=== PATIENT | female | born 1980 | race Asian ===

== ENCOUNTER 2020-07-23 13:28 | Outpatient (REF) | payer OTHER, SELFPAY | END 2020-07-23 13:29 | disposition home or self-care (01) | LOC: HO.HMGCLDS 13:28 | PROVIDERS: PCP Internal Medicine; Visit Provider Internal Medicine | DX: Z20.828 Contact with and (suspected) exposure to other viral communicable diseases (principal) | CPT/HCPCS: C9803; U0003 ==

== ENCOUNTER 2020-08-23 11:28 | Outpatient (REF) | payer OTHER, SELFPAY ==
[2020-08-23 14:09] LABS: Estimated Average Glucose 117 mg/dL; Hemoglobin A1c % 5.7 %
[2020-08-23 14:23] LABS: Alanine Aminotransferase 27 U/L (0-31); Albumin Level 4.5 g/dL (3.5-5.0); Alkaline Phosphatase 83 U/L (39-117); Anion Gap 14 (12-20); Aspartate Amino Transferase 21 U/L (5-31); Bilirubin Total 0.5 mg/dL (0.0-1.0); Blood Urea Nitrogen 9 mg/dL (9-16); Calcium 9.5 mg/dL (8.4-10.2); Carbon Dioxide 28 mmol/L (22-29); Chloride 99 mmol/L (96-108); Cholesterol 223 mg/dL; Estimated Glomerular Filt Rate > 60; Glucose Fasting 85 mg/dL (60-99); HDL Cholesterol 40 mg/dL; Sodium 137 mmol/L (135-145); Total Protein 7.9 g/dL (6.5-8.0); Triglycerides 472 mg/dL
== END 2020-08-23 11:29 | disposition home or self-care (01) ==
LOC: HO.HMGCLDS 11:28
PROVIDERS: PCP Internal Medicine; Visit Provider Internal Medicine
DX: I10 Essential (primary) hypertension (principal); E78.5 Hyperlipidemia, unspecified; R73.01 Impaired fasting glucose
CPT/HCPCS: 80053; 80061; 83036

== ENCOUNTER 2020-12-01 03:23 | Inpatient (IN) | payer OTHER, SELFPAY ==
[2020-12-01] VITALS (12 sets, daily range): BP systolic 123–149; BP diastolic 68–96; PULSE 78–111; RESP 12–18; TEMP 36.1–37.4; O2SAT 95–100; BMI 21.9
--- NOTE | ~2020-12-01 | CT_ITS ---
EXAMINATION: CT ABDOMEN AND PELVIS WITH CONTRAST CLINICAL INFORMATION: bilateral lower quadrant pain COMPARISON: None TECHNIQUE: Multidetector volumetric images were obtained from the superior aspect of the liver through the pubic symphysis following administration 85 mL of Omnipaque 350 intravenous contrast. Sagittal and coronal reformatted images were obtained on the technologist's workstation. Oral contrast: No This CT examination was performed using dose optimization techniques as appropriate, variously including the following: *Automated exposure control *Adjustment of mA and/or kV according to patient size (this includes techniques or standardized protocols for targeted exams where dose is matched to indication/reason for exam; i.e. extremities or head) *Use of iterative reconstruction technique DLP: 331 mGy-cm FINDINGS: LUNG BASES: The visualized lung bases are unremarkable. LIVER, GALLBLADDER, AND BILIARY TREE: The liver is normal in size, shape, and attenuation. No focal hepatic lesion or biliary ductal dilatation is present. The gallbladder is unremarkable with no evidence of radiopaque gallstones, gallbladder wall thickening, or obvious pericholecystic inflammatory changes. PANCREAS: Unremarkable. SPLEEN: Unremarkable. ADRENAL GLANDS: Unremarkable. KIDNEYS AND URETERS: Small subcentimeter foci of hypoattenuation in both kidneys are too small to characterize, but statistically favored to correspond to renal cysts. The kidneys are normal in size, shape, and attenuation. No hydronephrosis, hydroureter, or calculi seen. No perinephric stranding. BLADDER: Unremarkable. GASTROINTESTINAL TRACT: The appendix is dilated (1 cm) with hyperenhancement of the wall and surrounding fat stranding. No surrounding fluid collections. No evidence of perforation. No intraperitoneal free air. Trace amount of free fluid is present in the pelvis. There is mild reactive wall thickening at the base of the cecum. The stomach, small bowel, and colon are normal in caliber. ABDOMINAL WALL: No significant hernia is appreciated. LYMPH NODES: Normal. VASCULAR: Atherosclerotic calcifications are present in the abdominal aorta and iliac arteries. No aneurysmal dilatation. PELVIC VISCERA: Uterus is retroverted section scar is suspected at the anterior lower uterine segment. No adnexal lesions are identified. OSSEOUS STRUCTURES: Unremarkable. CT/CT abdomen pelvis w con IMPRESSION: Acute uncomplicated appendicitis.
--- NOTE | 2020-12-01 04:06 | ED_ITS ---
HPI - Abdominal Pain General Chief Complaint: Abdominal Pain Stated Complaint: Abd pain/ ?Food poisioning Time Seen by Provider: 12/01/20 03:59 Source: patient Mode of arrival: ambulatory Limitations: no limitations History of Present Illness HPI narrative: Patient comes emergency room complaining of abdominal cramping, loose stools and vomiting. Patient states last night she ate for dinner crab. No one at home got sick except her. Patient states that she feels abdominal cramping, worse in bilateral lower quadrants, states it almost feels like menstrual cramps which she is not on her period. Denies any sharp pain. Patient denies fever chills. MD elicited complaint: abdominal pain (Cramping) Related Data Home Medications Medication Instructions Recorded Confirmed flu vacc [id number] 6mos up(PF) ml IM 08/28/20 08/28/20 Previous Rx's Medication Instructions Recorded fenofibrate nanocrystallized 145 145 mg PO DAILY 90 Days #90 tab 08/28/20 mg tablet losartan 25 mg tablet 25 mg PO DAILY 90 Days #90 tab 08/28/20 Allergies Allergy/AdvReac Type Severity Reaction Status Date / Time No Known Allergies Allergy Verified 08/27/20 14:59 Review of Systems Review of Systems Constitutional : No Weight loss, No Fever, No Chills, No Night Sweats, No Fatigue, No Malaise ENT/Mouth : No Hearing loss, No Ear Pain, No Nasal Congestion, No Sinus Pain, No Hoarseness, No sore throat, No Rhinorrhea, No Swallowing Difficulty Eyes: No Eye Pain, No Swelling, No Redness, No Foreign Body, No Discharge, No Vision Changes Cardiovascular : No Chest Pain, No SOB, No Dyspnea on Exertion, No Orthopnea, No Edema, No Palpitations Respiratory : No Cough, No Sputum, No Wheezing, No Smoke Exposure, No Dyspnea Gastrointestinal : Complaining of nausea, vomiting, loose stools No Constipati on, complaining of abdominal cramping, No Hematochezia, No Melena Genitourinary : no irregular bleeding, No Dysuria, No Urinary Frequency, No Hematuria, No Urinary Incontinence, No Urgency, No Flank Pain, No Urinary Flow Changes, No Hesitancy Musculoskeletal : No joint pain, No Myalgias, No Joint Swelling Skin : No Skin Lesions, No rash Neuro : No Weakness, No Numbness, No Paresthesias, No Loss of Consciousness, No Dizziness, No Headache Psych : No Anxiety/Panic, No Depression, No SI/HI/AH/VH, No Social Issues, Heme/Lymph: No Bruising, No Bleeding,No Lymphadenopathy Endocrine : No Polyuria, No Polydipsia, No Temperature Intolerance Physical Exam Vital Signs: Vital Signs: Last Vital Signs Temp 99.4 F 12/01/20 03:51 Pulse 111 H 12/01/20 03:51 Resp 16 12/01/20 03:51 BP 149/96 H 12/01/20 03:51 Pulse Ox 99 12/01/20 03:51 Body Mass Index 21.9 Appearance: Alert. Oriented X3. No acute distress. Well-appearing Eyes: Pupils equal, round and reactive to light. ENT: Pharynx normal. Neck: Normal inspection. Neck supple. No lymph nodes noted. No crepitus CVS: Normal heart rate and rhythm. Pulses normal. Normal S1 and S2 Respiratory: No respiratory distress. Breath sounds normal. No Wheezing. No rales Abdomen: Soft and nontender. No rigidity. No distention. good BS x4 Skin: Skin warm and dry. Normal skin color. Normal skin turgor. Extremities: No lower extremity edema. No lower extremity edema. No Lacerat ions. No Rash Neuro: Oriented X 3. No motor deficit. No sensory deficit. Moving all extermities. No slurred speech. Course Course Course Narrative: I discussed the labs and CT findings with Dr. Jerry. Patient will be admitted to the surgery service. MDM - Abdominal Pain Lab Data Result diagrams: 12/01/20 04:40 12/01/20 04:40 Labs: Lab Results 12/01/20 12/01/20 12/01/20 Range/Units 04:40 04:40 04:40 WBC 13.4 H (4.8-10.8) X10*3/uL RBC 4.95 (4.20-5.50) X10*6/uL Hgb 13.8 (12.0-16.0) g/dl Hct 42.8 (37-47) % MCV 86.5 (80-98) fL MCH 27.9 (27.0-33.0) pg MCHC 32.2 (31.0-35.0) g/dl RDW 14.8 (11.0-16.0) % Plt Count 299 (160-400) X10*3/uL MPV 9.2 L (9.4-12.3) fL Immature Gran % (Auto) 0.4 (0.0-0.4) % Neut % (Auto) 83.3 H (45-73) % Lymph % (Auto) 10.9 L (20-40) % [place] % (Auto) 5.1 (2-11) % Eos % (Auto) 0.1 (0-4) % Baso % (Auto) 0.2 (0-2) % Lymph # (Auto) 1.5 (1.2-4.9) X10*3/uL [place] # (Auto) 0.7 (0.1-1.2) X10*3/uL Eos # (Auto) 0.0 (0.0-0.4) X10*3/uL Baso # (Auto) 0.0 (0.0-0.2) X10*3/uL Abs Immat Gran (auto) 0.05 H (0.00-0.03) X10*3/uL Absolute Neuts (auto) 11.2 H (2.0-8.3) X10*3/uL Absolute Nucleated RBC 0.000 (0.0-0.012) X10*3/uL Nucleated RBC % (auto) 0.0 (0.0-0.2) /100WBC Sodium 136 (135-145) mmol/L Potassium 4.1 (3.3-5.1) mmol/L Chloride 103 (96-108) mmol/L Carbon Dioxide 24 (22-29) mmol/L Anion Gap 13 (12-20) BUN 12 (9-16) mg/dL Creatinine 0.80 (0.5-1.4) mg/dL Estim Creat Clear Calc 73.2 Estimated GFR > 60 Random Glucose 139 H (60-115) mg/dL Calcium 11.0 H D (8.4-10.2) mg/dL Total Bilirubin 0.2 (0.0-1.0) mg/dL Direct Bilirubin < 0.2 (0.0-0.5) mg/dL AST 23 (5-31) U/L ALT 30 (0-31) U/L Alkaline Phosphatase 93 (39-117) U/L Total Protein 8.6 H (6.5-8.0) g/dL Albumin 5.1 H (3.5-5.0) g/dL Lipase 17 (8-78) U/L Urine Color Urine Appearance Urine pH (5.0-8.0) Ur Specific [place] (1.005-1.025) Urine Protein (NEG-TRACE) MG/DL Urine Glucose (UA) (NEG) MG/DL Urine Ketones (NEG) MG/DL Urine Blood (NEG) Urine Nitrite (NEG) Ur Leukocyte Esterase (NEG) Urine RBC (0) /HPF Urine WBC (0-4) /HPF Ur Squamous Epith Cells /LPF Urine Bacteria /LPF Urine Mucus /LPF Urine Test NEGATIVE (NEGATIVE) 12/01/20 Range/Units 04:40 WBC (4.8-10.8) X10*3/uL RBC (4.20-5.50) X10*6/uL Hgb (12.0-16.0) g/dl Hct (37-47) % MCV (80-98) fL MCH (27.0-33.0) pg MCHC (31.0-35.0) g/dl RDW (11.0-16.0) % Plt Count (160-400) X10*3/uL MPV (9.4-12.3) fL Immature Gran % (Auto) (0.0-0.4) % Neut % (Auto) (45-73) % Lymph % (Auto) (20-40) % [place] % (Auto) (2-11) % Eos % (Auto) (0-4) % Baso % (Auto) (0-2) % Lymph # (Auto) (1.2-4.9) X10*3/uL [place] # (Auto) (0.1-1.2) X10*3/uL Eos # (Auto) (0.0-0.4) X10*3/uL Baso # (Auto) (0.0-0.2) X10*3/uL Abs Immat Gran (auto) (0.00-0.03) X10*3/uL Absolute Neuts (auto) (2.0-8.3) X10*3/uL Absolute Nucleated RBC (0.0-0.012) X10*3/uL Nucleated RBC % (auto) (0.0-0.2) /100WBC Sodium (135-145) mmol/L Potassium (3.3-5.1) mmol/L Chloride (96-108) mmol/L Carbon Dioxide (22-29) mmol/L Anion Gap (12-20) BUN (9-16) mg/dL Creatinine (0.5-1.4) mg/dL Estim Creat Clear Calc Estimated GFR Random Glucose (60-115) mg/dL Calcium (8.4-10.2) mg/dL Total Bilirubin (0.0-1.0) mg/dL Direct Bilirubin (0.0-0.5) mg/dL AST (5-31) U/L ALT (0-31) U/L Alkaline Phosphatase (39-117) U/L Total Protein (6.5-8.0) g/dL Albumin (3.5-5.0) g/dL Lipase (8-78) U/L Urine Color YELLOW Urine Appearance CLEAR Urine pH 6.0 (5.0-8.0) Ur Specific [place] 1.025 (1.005-1.025) Urine Protein NEG (NEG-TRACE) MG/DL Urine Glucose (UA) NEG (NEG) MG/DL Urine Ketones NEG (NEG) MG/DL Urine Blood NEG (NEG) Urine Nitrite NEG (NEG) Ur Leukocyte Esterase TRACE H (NEG) Urine RBC 1-4 (0) /HPF Urine WBC 5-9 H (0-4) /HPF Ur Squamous Epith Cells 1+ /LPF Urine Bacteria 2+ /LPF Urine Mucus 1+ /LPF Urine Test (NEGATIVE) Discharge Plan Discharge Prescriptions: No Action Fluzone Quad 1209-1660 (PF) 60 mcg (15 mcg x 4)/0.5 mL syringe IM RF: 0 losartan 25 mg tablet 25 mg PO DAILY 90 Days Qty: 90 RF: 1 fenofibrate nanocrystallized 145 mg tablet 145 mg PO DAILY 90 Days Qty: 90 RF: 1 PMFSH Past Medical History Medical History Hypertension, essential Lipid disorder Surgical History No pertinent past surgical history Family History Family History Father No problems noted. Mother No problems noted. Brother No problems noted. Sister No problems noted. Daughter No problems noted. Social History Social History Alcohol intake: never Smoking Status: Never smoker Advance Directives: No Advance Directives Information Provided: No
[2020-12-01] MEDS: 0.9 % Sodium Chloride 1,000 ML 999 ML IVCONT (04:41)
[2020-12-01 04:45] LABS: Basophils Percent Auto 0.2 % (0-2); Eosinophils Percent Auto 0.1 % (0-4); Hematocrit 42.8 % (37-47); Hemoglobin 13.8 g/dl (12.0-16.0); Imm Gran Abs Auto 0.05 X10*3/uL (0.00-0.03); Imm Gran Pct Auto 0.4 % (0.0-0.4); Lymphocytes Absolute Auto 1.5 X10*3/uL (1.2-4.9); Lymphocytes Percent Auto 10.9 % (20-40); Mean Corpuscular HGB Conc 32.2 g/dl (31.0-35.0); Mean Corpuscular Hemoglobin 27.9 pg (27.0-33.0); Mean Corpuscular Volume 86.5 fL (80-98); Mean Platelet Volume 9.2 fL (9.4-12.3); Monocytes Absolute Auto 0.7 X10*3/uL (0.1-1.2); Monocytes Percent Auto 5.1 % (2-11); Neutrophils Absolute Auto 11.2 X10*3/uL (2.0-8.3); Neutrophils Percent Auto 83.3 % (45-73); Platelet Count 299 X10*3/uL (160-400); Red Blood Count 4.95 X10*6/uL (4.20-5.50); Red Cell Distribution Width 14.8 % (11.0-16.0); White Blood Count 13.4 X10*3/uL (4.8-10.8)
[2020-12-01 04:46] LABS: MANUAL DIFF FLAG NO
[2020-12-01 04:48] LABS: Glucose Urine UA NEG (NEG); Leukocyte Esterase Urine TRACE (NEG); Nitrite Urine NEG (NEG); Specific Gravity - Urine 1.025 (1.005-1.025); UACC Culture Trigger YES; Urine Blood NEG (NEG); Urine Ketones NEG (NEG); Urine Protein NEG (NEG-TRACE)
[2020-12-01 04:50] LABS: Appearance Urine CLEAR; Color Urine YELLOW
[2020-12-01 04:51] LABS: Urine Pregnancy NEGATIVE (NEGATIVE)
[2020-12-01 04:52] LABS: UPreg QC Valid YES
[2020-12-01 04:54] LABS: Bacteria Urine 2+ /LPF; Mucus Urine 1+ /LPF; Squamous Epithelial Cell Urine 1+ /LPF
[2020-12-01 05:13] LABS: Alanine Aminotransferase 30 U/L (0-31); Albumin Level 5.1 g/dL (3.5-5.0); Alkaline Phosphatase 93 U/L (39-117); Anion Gap 13 (12-20); Aspartate Amino Transferase 23 U/L (5-31); Bilirubin Direct < 0.2 mg/dL (0.0-0.5); Bilirubin Total 0.2 mg/dL (0.0-1.0); Blood Urea Nitrogen 12 mg/dL (9-16); Carbon Dioxide 24 mmol/L (22-29); Chloride 103 mmol/L (96-108); Creatinine Clr Calc Pharmacy 73.2; Estimated Glomerular Filt Rate > 60; Glucose Random 139 mg/dL (60-115); Lipase 17 U/L (8-78); Potassium 4.1 mmol/L (3.3-5.1); Sodium 136 mmol/L (135-145); Total Protein 8.6 g/dL (6.5-8.0)
[2020-12-01] MEDS: Magnesium Hydrox/Alum Hydrox 30 ML ORAL.SUSP PO (05:40)
[2020-12-01] MEDS: Lidocaine HCl Viscous 2 % 15 ML SOLUTION MUCOUS MEM (05:40)
[2020-12-01] MEDS: ondansetron HCL 4 MG/2 ML VIAL IVPUSH (05:40)
[2020-12-01] MEDS: Piperacillin Sodium/Tazobactam 3.375 GM in 0.9 % Sodium Chloride 50 ML IV (07:05)
--- NOTE | 2020-12-01 07:42 | PM.HPGS ---
History of Present Illness History of Present Illness Date of Service: 12/01/20 Chief complaint: Abd pain/ ?Food poisioning Narrative: Lexy Jean Baptiste is a 40 year old female is a 40-year-old female presenting with complaints of abdominal pain in the right lower quadrant and left lower quadrant. The pain began last evening with no inciting event. Pain became most severe during the night and she subsequently presented to the emergency department. The pain was proceeded by pain in the right flank for the previous day. She reports nausea and vomiting without fever or chills. She does report feeling warm and having loose but not watery stool. She usually thought she had a GI bug. Upon presentation to the emergency department she was found to have tenderness in the lower abdomen especially the right lower quadrant. WBC was found to be mildly elevated at 13,000. Subsequent CT of the abdomen and pelvis revealed a thickened and dilated appendix suggestive of acute appendicitis without perforation. She is admitted to the surgical service for further management. Review of Systems Review of Systems: Yes all other systems are reviewed and are negative Constitutional: Constitutional: Denies chills, Denies fever(s), Denies night sweats and Denies weakness Cardiovascular: Cardiovascular: Denies Abdominal Distension, Denies chest pain, Denies Epigastric Pain, Denies irregular heart rhythm, Denies palpitations and Denies dyspnea Respiratory: Respiratory: Denies cough, Denies pain on inspiration, Denies dyspnea, Denies stridor and Denies wheezing Gastrointestinal: Gastrointestinal: Reports abdominal pain, Denies bloating, Denies hematochezia, Reports nausea, Reports vomiting and Denies hematemesis Genitourinary: Genitourinary: Reports no additional female genitourinary complaints Musculoskeletal: Musculoskeletal: Reports no additional musculoskeletal complaints Integumentary/Breasts: Skin/Breast: Reports system reviewed and no additional complaints, except as docu Neurologic: Reports system reviewed and no additional complaints, except as documented and Denies weakness Endocrine: Endocrine: Denies palpitations Hematologic/Lymphatic: Hematologic/Lymphatic: Denies lymphadenopathy Allergic/Immunologic: Allergic/Immunologic: Denies wheezing PMFSH Past Medical History Medical History Hypertension, essential Lipid disorder Family History Family History Father No problems noted. Mother No problems noted. Brother No problems noted. Sister No problems noted. Daughter No problems noted. Surgical History Surgical History Previous section Social History Social History Alcohol intake: never Smoking Status: Never smoker Advance Directives: No Advance Directives Information Provided: No Meds Allergies Allergy/AdvReac Type Severity Reaction Status Date / Time No Known Allergies Allergy Verified 08/27/20 14:59 Active Medications: Current Medications Generic Name Dose Route Start Last Admin Trade Name Freq PRN Reason Stop Dose Admin Acetaminophen 650 mg 12/01/20 07:38 Acetaminophen 325 Mg Tablet PO Q6H PRN Pain, Mild (Pain Scale 1-3) Cefotetan Disodium 2 gm/ 50 mls @ 100 mls/hr 12/01/20 07:38 Sodium Chloride IV 12/01/20 08:07 PREOP ONE Morphine Sulfate 4 mg 12/01/20 07:40 Morphine Sulfate 4 Mg/Ml Cartridge IVPUSH Q4H PRN Pain, Severe (Pain Scale 7-10) Ondansetron HCl 4 mg 12/01/20 07:38 Ondansetron Hcl 4 Mg/2 Ml Vial IVPUSH Q8H PRN Nausea and Vomiting Sodium Chloride 3 ml 12/01/20 08:00 0.9 % Sodium Chloride Flush 3 Ml Syringe IVFLUSH QSHIFT RUBIN Zolpidem Tartrate 5 mg 12/01/20 07:38 Zolpidem Tartrate 5 Mg Tablet PO BEDTIME PRN Insomnia Home Medications Medication Instructions Recorded Confirmed Last Taken Type flu vacc [id number] 6mos up(PF) ml IM 08/28/20 08/28/20 Unknown History Physical Exam Vital Signs: Vital Signs: Last Vital Signs Temp 99.4 F 12/01/20 03:51 Pulse 111 H 12/01/20 03:51 Resp 16 12/01/20 03:51 BP 149/96 H 12/01/20 03:51 Pulse Ox 99 12/01/20 03:51 Body Mass Index 21.9 Const: General: cooperative, healthy appearing, comfortable, no acute distress, well developed, alert and awake HENMT: Head: Yes normocephalic and Yes atraumatic Neck: Neck: Yes normal visual inspection, Yes full ROM and Yes no JVD Resp: Effort & Inspection: normal respiratory effort, no stridor and not tachypneic Cardio: Jugular venous distension: no JVD Rate: regular rate Rhythm: regular rhythm GI: Inspection: Yes normal to inspection and No distended Palpation (GI): Soft to palpation, Tenderness to palpation present (GI) in the RLQ and at McBurney's point and No hepatosplenomegaly present Percussion: Yes normal to percussion Auscultation: normal bowel sounds Skin: General skin exam: no rashes or lesions noted Extrem: General: Yes normal to inspection, Yes full ROM and Yes no clubbing, cyanosis or edema Results Results Labs: Short CBC 12/01/20 Range/Units 04:40 WBC 13.4 H (4.8-10.8) X10*3/uL Hgb 13.8 (12.0-16.0) g/dl Hct 42.8 (37-47) % Plt Count 299 (160-400) X10*3/uL BMP 12/01/20 04:40 Sodium 136 Potassium 4.1 Chloride 103 Carbon Dioxide 24 BUN 12 Creatinine 0.80 Calcium 11.0 H D Liver Function 12/01/20 Range/Units 04:40 Total Bilirubin 0.2 (0.0-1.0) mg/dL Direct Bilirubin < 0.2 (0.0-0.5) mg/dL AST 23 (5-31) U/L ALT 30 (0-31) U/L Alkaline Phosphatase 93 (39-117) U/L Albumin 5.1 H (3.5-5.0) g/dL Urine 12/01/20 12/01/20 Range/Units 04:40 04:40 Urine Color YELLOW Urine Appearance CLEAR Urine pH 6.0 (5.0-8.0) Ur Specific [place] 1.025 (1.005-1.025) Urine Protein NEG (NEG-TRACE) MG/DL Urine Glucose (UA) NEG (NEG) MG/DL Urine Test NEGATIVE (NEGATIVE) Assessment and Plan (1) Acute appendicitis: Status: Acute 40-year-old female presenting with complaints of abdominal pain in the lower abdomen found to be tender in the right lower quadrant. Laboratories revealed elevated WBC and CT confirms a thickened dilated appendix consistent with acute appendicitis. We discussed treatment options including IV antibiotics verses laparoscopic or possible open appendectomy. The relative risks and benefits were discussed in detail in the patient's questions answered to her apparent satisfaction. The patient has decided to proceed with laparoscopic or possible open appendectomy. After discussion of the procedure, risks, and alternatives, she consents to the surgery. She will be added onto the operative schedule for this morning.
[2020-12-01] MEDS: Lactated Ringers 1,000 ML 100 ML IVCONT (08:02)
--- NOTE | 2020-12-01 08:04 | MHC.SHP ---
Pre-Procedural Eval Section A The patient is an INPATIENT: Yes Changes since office visit: Yes Patient answered all questions; No Cold of Flu in the past 2 weeks, No New Medical Problems and No Changes in Medication The History & Physical has been completed within 30 days and I have reviewed it.: Yes Section B Chief Complaint: Abd pain/ ?Food poisioning Allergies: Allergies Allergy/AdvReac Type Severity Reaction Status Date / Time No Known Allergies Allergy Verified 08/27/20 14:59 Plan Diagnosis/Plan: Unchanged I have reviewed the history and physical and performed a pertinent physical examination on my patient. No changes have occurred unless specified.
--- NOTE | 2020-12-01 09:02 | HO.ANESPROP2 ---
[facility] Active Problems Active Problems: All Active Problems (Updated 12/01/20 @ 07:47 by Lino Jerry MD) Acute appendicitis (Acute) Lipid disorder (Acute) Hypertension, essential (Acute) Past Medical History Medical History Hypertension, essential Lipid disorder Family History Family History Father No problems noted. Mother No problems noted. Brother No problems noted. Sister No problems noted. Daughter No problems noted. Surgical History Surgical History Previous section Social History Social History Alcohol intake: never Smoking Status: Never smoker Advance Directives: No Advance Directives Information Provided: No Meds Allergies Allergy/AdvReac Type Severity Reaction Status Date / Time No Known Allergies Allergy Verified 08/27/20 14:59 Active Medications: Current Medications Generic Name Dose Route Start Last Admin Trade Name Freq PRN Reason Stop Dose Admin Acetaminophen 650 mg 12/01/20 07:38 Acetaminophen 325 Mg Tablet PO Q6H PRN Pain, Mild (Pain Scale 1-3) Lactated Ringer's 1,000 mls @ 100 mls/hr 12/01/20 08:00 12/01/20 08:02 Lr IVCONT 100 mls/hr .Q10H RUBIN Administration Morphine Sulfate 4 mg 12/01/20 07:40 Morphine Sulfate 4 Mg/Ml Cartridge IVPUSH Q4H PRN Pain, Severe (Pain Scale 7-10) Ondansetron HCl 4 mg 12/01/20 07:38 Ondansetron Hcl 4 Mg/2 Ml Vial IVPUSH Q8H PRN Nausea and Vomiting Sodium Chloride 3 ml 12/01/20 08:00 12/01/20 08:03 0.9 % Sodium Chloride Flush 3 Ml Syringe IVFLUSH Not Given QSHIFT RUBIN Zolpidem Tartrate 5 mg 12/01/20 07:38 Zolpidem Tartrate 5 Mg Tablet PO BEDTIME PRN Insomnia Exam Exam Date and Time: December 01, 2020 0902 Height,Weight and Vital Signs: Height 5 ft 2 in Weight 54.431 kg Last Vital Signs Temp 99.4 F 12/01/20 03:51 Pulse 111 H 12/01/20 03:51 Resp 16 12/01/20 03:51 BP 149/96 H 12/01/20 03:51 Pulse Ox 99 12/01/20 03:51 Pertinent Lab Results Pertinent Lab Results: Laboratory Tests 12/01/20 12/01/20 12/01/20 04:40 04:40 04:40 WBC 13.4 H RBC 4.95 Hgb 13.8 Hct 42.8 MCV 86.5 MCH 27.9 MCHC 32.2 RDW 14.8 Plt Count 299 MPV 9.2 L Immature Gran % (Auto) 0.4 Neut % (Auto) 83.3 H Lymph % (Auto) 10.9 L [place] % (Auto) 5.1 Eos % (Auto) 0.1 Baso % (Auto) 0.2 Lymph # (Auto) 1.5 [place] # (Auto) 0.7 Eos # (Auto) 0.0 Baso # (Auto) 0.0 Abs Immat Gran (auto) 0.05 H Absolute Neuts (auto) 11.2 H Absolute Nucleated RBC 0.000 Nucleated RBC % (auto) 0.0 Sodium 136 Potassium 4.1 Chloride 103 Carbon Dioxide 24 Anion Gap 13 BUN 12 Creatinine 0.80 Estim Creat Clear Calc 73.2 Estimated GFR > 60 Random Glucose 139 H Calcium 11.0 H D Total Bilirubin 0.2 Direct Bilirubin < 0.2 AST 23 ALT 30 Alkaline Phosphatase 93 Total Protein 8.6 H Albumin 5.1 H Lipase 17 Urine Color Urine Appearance Urine pH Ur Specific [place] Urine Protein Urine Glucose (UA) Urine Ketones Urine Blood Urine Nitrite Ur Leukocyte Esterase Urine RBC Urine WBC Ur Squamous Epith Cells Urine Bacteria Urine Mucus Urine Test NEGATIVE 12/01/20 04:40 WBC RBC Hgb Hct MCV MCH MCHC RDW Plt Count MPV Immature Gran % (Auto) Neut % (Auto) Lymph % (Auto) [place] % (Auto) Eos % (Auto) Baso % (Auto) Lymph # (Auto) [place] # (Auto) Eos # (Auto) Baso # (Auto) Abs Immat Gran (auto) Absolute Neuts (auto) Absolute Nucleated RBC Nucleated RBC % (auto) Sodium Potassium Chloride Carbon Dioxide Anion Gap BUN Creatinine Estim Creat Clear Calc Estimated GFR Random Glucose Calcium Total Bilirubin Direct Bilirubin AST ALT Alkaline Phosphatase Total Protein Albumin Lipase Urine Color YELLOW Urine Appearance CLEAR Urine pH 6.0 Ur Specific [place] 1.025 Urine Protein NEG Urine Glucose (UA) NEG Urine Ketones NEG Urine Blood NEG Urine Nitrite NEG Ur Leukocyte Esterase TRACE H Urine RBC 1-4 Urine WBC 5-9 H Ur Squamous Epith Cells 1+ Urine Bacteria 2+ Urine Mucus 1+ Urine Test Airway Mallampati Class: II TM Dist: >3cm Neck ROM: Full Heart: RRR Lungs: CTA
--- NOTE | 2020-12-01 09:22 | P.OP_ITS ---
Operative Note Operative Note Date of Service: 12/01/20 Narrative: Preoperative diagnosis: Acute appendicitis Postoperative diagnosis: Same Procedure: Laparoscopic appendectomy Surgeon: Lino Jerry MD Diving Coach: None Anesthesia: General endotracheal Indications for procedure: 40-year-old female presenting with complaints of right lower quadrant abdominal pain found to have tenderness over McBurney's point. She was found to have an elevated WBC and thickened appendix on CT scan. Operative findings: Acute appendicitis without perforation. Specimen: Appendix Estimated blood loss: 5 mL Complications: None Procedure details: Patient was brought to the OR and placed in a supine position. After administering general anesthesia the patient's abdomen was prepped with ChloraPrep and draped in a sterile fashion. A surgical time-out was called and consent confirmed. Patient received preoperative antibiotics and Venodyne boots were in place. Local anesthesia consisting of 0.25% Sensorcaine with epinephrine was infiltrated in periumbilical region. A 5 mm incision was made below the umbilicus and carried down through subcutaneous tissue. A Veress needle was then inserted while elevating abdominal cavity with towel clips. After a positive drop test the abdomen was insufflated to a pressure of 15 mm of mercury. The Veress needle was removed and a 5 mm trocar inserted. The camera was then inserted in the abdomen explored. A 2nd 5 mm trocars placed in the lower midline. A 12 mm trocar was then placed in the left lower quadrant. The patient was then placed in a Trendelenburg position and rotated to the left. The appendix was identified in the right lower quadrant and brought up using blunt dissecting clamps. The mesentery of the appendix was then divided using the LigaSure. The appendiceal artery was cauterized and divided using the L igaSure. Dissection was continued down to the base of the cecum. An Endo-SHRUTI stapler with a purple reload was then used to divide the appendix at the base with the cecum. The appendix was then placed in Endo-Catch bag and brought out through the left lower quadrant incision. The abdomen was then irrigated with saline solution and suctioned dry. Wounds were checked for hemostasis. CO2 was then evacuated from the abdominal cavity and all trocars removed. Fascia was closed in the left lower quadrant incision using a [id number] 0 Polysorb suture. Skin was closed at all incisions using a subcuticular 4-0 Polysorb suture. Steri-Strips 2 x 2 gauze and Tegaderm were then applied. The patient tolerated the procedure well. Sponge, instrument, needle counts reported as correct. The patient was transferred to PACU in stable condition.
--- NOTE | 2020-12-01 15:59 | MHC.CM.PN ---
EMR REVIEWED, PT ADMITTED W/ACUTE APPENDICITIS W/LAP APPENDECTOMY, CM MET WITH PT WHO IS ALERT AND ORIENTED, PT REPORTS SHE LIVES W[facility] 2 KIDS [facility] [place], PT IS INDEPENDENT WITH ALL CARE, NO SERVICES. PT VERIFIES PCP AND PHARMACY. PCP: ART JACKMAN HCP: PT PROVIDED EDUCATION AND DECLINES AT THIS TIME. DISCHARGE PLAN: HOME SELF-CARE, TO TRANSPORT.
--- NOTE | 2020-12-01 16:02 | PM.DS ---
DS: Providers Provider Date of Service: 12/01/20 Date of admission: 12/01/20 07:39 Date of discharge: 12/01/20 Primary care physician: Ayo Negrete MD Admitting clinician: Lino Jerry Discharging clinician: Lino Jerry DS: Diagnosis Discharge Diagnosis (1) Acute appendicitis: Status: Acute DS: Medications Discharge Medications Home Medications: Previous Rx's Medication Instructions Recorded fenofibrate nanocrystallized 145 145 mg PO DAILY 90 Days #90 tab 08/28/20 mg tablet losartan 25 mg tablet 25 mg PO DAILY 90 Days #90 tab 08/28/20 oxycodone 5 mg PO Q6H PRN #15 tab 12/01/20 DS: Summary Hospital Course Hospital Course: Lexy Jean Baptiste is a 40 year old female is a 40-year-old female presenting with complaints of abdominal pain in the right lower quadrant and left lower quadrant. The pain began last evening with no inciting event. Pain became most severe during the night and she subsequently presented to the emergency department. The pain was proceeded by pain in the right flank for the previous day. She reports nausea and vomiting without fever or chills. She does report feeling warm and having loose but not watery stool. She usually thought she had a GI bug. Upon presentation to the emergency department she was found to have tenderness in the lower abdomen especially the right lower quadrant. WBC was found to be mildly elevated at 13,000. Subsequent CT of the abdomen and pelvis revealed a thickened and dilated appendix suggestive of acute appendicitis without perforation. She is admitted to the surgical service for further management. She was taken to the OR on the day of admission and underwent a laparoscopic appendectomy. Operative findings confirmed an acute appendicitis without rupture or abscess. She tolerated the procedure well. She was started on a regular diet and tolerated this well without nausea or vomiting. She was able to ambulate independently and void. She requested to be discharged on POD #0. She is discharged to home. Instructions were to avoid lifting > 10 pounds for the next two weeks. She should follow up in the office in one week for a wound check. She may shower and should remove the dressing in three days. She should call for fever, chills, nausea, vomiting, increased abdominal pain or other concerns following the surgery. Time Spent with Patient Time attestation: Total time spent providing and/or coordinating discharge services: Discharge coordination time: Less than 30 minutes Physical Exam Vital Signs: Vital Signs: Last Vital Signs Temp 97.2 F 12/01/20 14:54 Pulse 92 12/01/20 14:54 Resp 18 12/01/20 17:46 BP 123/68 12/01/20 14:54 Pulse Ox 99 12/01/20 14:54 Body Mass Index 21.9 Const: General: cooperative, healthy appearing, comfortable, no acute distress and well developed HENMT: Head: Yes normocephalic and Yes atraumatic Resp: Effort & Inspection: normal respiratory effort, no cough, no stridor and not tachypneic Cardio: Jugular venous distension: no JVD Rate: regular rate Rhythm: regular rhythm GI: Inspection: Yes normal to inspection Palpation (GI): Soft to palpation, Tenderness to palpation present (GI) and no guarding Extrem: General: Yes normal to inspection and Yes full ROM DS: Data Data Completed and Pending Pending studies at discharge: Pending at discharge 12/01/20 09:06 Surgical [PTH] Routine Discharge Plan Discharge Patient Disposition: Home, Self-Care Referrals: Ayo Negrete MD [Primary Care Provider] - Lino Jerry MD [Physician] - 1 Week Discharge Medications: New oxycodone 5 mg tablet 5 mg PO Q6H PRN (Reason: pain) Qty: 15 RF: 0 Continued losartan 25 mg tablet 25 mg PO DAILY 90 Days Qty: 90 RF: 1 fenofibrate nanocrystallized 145 mg tablet 145 mg PO DAILY 90 Days Qty: 90 RF: 1 Discharge Orders: Discharge Order (Routine); Ordered 12/01/20 Ordered By: Lino Jerry Diet: advance to usual diet Activity on Discharge: No heavy lifting Stand Alone Forms: Patient Portal Discharge page, Work/School Release Care Plan Goals: Return to normal activity and diet Health Concerns: Acute appendicitis Plan of Treatment: Laparoscopic appendectomy performed 12/01/2020 Patient Instructions: Laparoscopic Appendectomy (DC) Discharge Date/Time: 12/01/20 18:00
[2020-12-01] MEDS: oxyCODONE HCl Immed Release 5 MG TABLET PO (16:16)
--- NOTE | 2020-12-01 16:42 | PC.NURSE ---
Addendum entered by Naresh Hurley RN 12/01/20 16:43: Educated patient about these additional instructions. Original Note: Discharging patient - Clarified d/c instructions w/ Dr Jerry - patient should leave the tagaderm on for three days then remove. She may shower tomorrow. Sutures are dissolvable.
--- NOTE | 2020-12-02 11:50 | HO.POSTANES ---
Post Anesthesia Evaluation Post Anesthesia Evaluation Vital Signs: Patient seen 7am, VSS Anesthesia: General Endotracheal-GETA Mental Status: Awake Pain Control: Satisfactory Nausea/Vomiting: None Hydration: Adequate Anesthesia-Related Issues: No Anes. Related Issues
== END 2020-12-01 18:00 | disposition home or self-care (01) | DRG 343 ==
LOC: HO.ED 08:03 → HO.EDOVER 08:08 → HO.S3 09:33
PROVIDERS: Admitting Provider Surgery; Emergency Provider Emergency Medicine; PCP Internal Medicine; Visit Provider Surgery
PROC: 0DTJ4ZZ Resection of Appendix, Percutaneous Endoscopic Approach (ICD-10-PCS; CPT 44970; principal; 2020-12-01 07:00)
DX: K35.80 Unspecified acute appendicitis (principal); I10 Essential (primary) hypertension
CPT/HCPCS: 44970; 36415; 74177; 80048; 80076; 81001; 81003; 81025; 83690; 85025; 87086; 87147; 88304; 96361; 96365; 96375; 99283; 99285; J1100; J2250; J2405; J2543; J3010; Q9967

== ENCOUNTER → 2020-12-13 09:06 | Outpatient (BNVA) | payer OTHER, SELFPAY | PROVIDERS: PCP Internal Medicine; Visit Provider Surgery ==

== ENCOUNTER 2021-02-06 07:44 | Outpatient (REF) | payer OTHER, SELFPAY ==
[2021-02-06 11:35] LABS: Anion Gap 13 (12-20); Blood Urea Nitrogen 18 mg/dL (9-16); Calcium 9.1 mg/dL (8.4-10.2); Carbon Dioxide 21 mmol/L (22-29); Chloride 108 mmol/L (96-108); Cholesterol 211 mg/dL; Estimated Glomerular Filt Rate > 60; Glucose Fasting 89 mg/dL (60-99); HDL Cholesterol 54 mg/dL; LDL Cholesterol Calculated 139 mg/dl; Potassium 4.5 mmol/L (3.3-5.1); Sodium 137 mmol/L (135-145); Triglycerides 92 mg/dL
== END 2021-02-06 07:45 | disposition home or self-care (01) ==
LOC: HO.HMGCLDS 07:44
PROVIDERS: PCP Internal Medicine; Visit Provider Internal Medicine
DX: I10 Essential (primary) hypertension (principal); E78.9 Disorder of lipoprotein metabolism, unspecified
CPT/HCPCS: 36415; 80048; 80061

== ENCOUNTER 2021-08-05 08:43 | Outpatient (REF) | payer OTHER, SELFPAY ==
[2021-08-05 11:28] LABS: MANUAL DIFF FLAG NO
[2021-08-05 11:37] LABS: Basophils Percent Auto 0.6 % (0-2); Eosinophils Percent Auto 0.6 % (0-4); Hemoglobin 13.2 g/dl (12.0-16.0); Imm Gran Abs Auto 0.01 X10*3/uL (0.00-0.03); Imm Gran Pct Auto 0.2 % (0.0-0.4); Lymphocytes Absolute Auto 1.6 X10*3/uL (1.2-4.9); Lymphocytes Percent Auto 34.4 % (20-40); Mean Corpuscular HGB Conc 31.4 g/dl (31.0-35.0); Mean Corpuscular Hemoglobin 28.3 pg (27.0-33.0); Mean Corpuscular Volume 90.1 fL (80.0-98.0); Mean Platelet Volume 9.5 fL (9.4-12.3); Monocytes Absolute Auto 0.4 X10*3/uL (0.1-1.2); Monocytes Percent Auto 8.4 % (2-11); Neutrophils Absolute Auto 2.6 x10*3/uL (2.0-8.3); Neutrophils Percent Auto 55.8 % (45-73); Platelet Count 337 X10*3/uL (160-400); Red Blood Count 4.66 X10*6/uL (4.20-5.50); Red Cell Distribution Width 13.5 % (11.0-16.0); White Blood Count 4.7 X10*3/uL (4.8-10.8)
[2021-08-05 12:03] LABS: Alanine Aminotransferase 19 U/L (0-31); Albumin Level 4.5 g/dL (3.5-5.0); Alkaline Phosphatase 66 U/L (39-117); Anion Gap 14 (12-20); Aspartate Amino Transferase 19 U/L (5-31); Bilirubin Total 0.3 mg/dL (0.0-1.0); Blood Urea Nitrogen 19 mg/dL (9-16); Calcium 9.5 mg/dL (8.4-10.2); Carbon Dioxide 24 mmol/L (22-29); Chloride 107 mmol/L (96-108); Cholesterol 244 mg/dL; Estimated Glomerular Filt Rate > 60; Glucose Fasting 104 mg/dL (60-99); HDL Cholesterol 48 mg/dL; LDL Cholesterol Calculated 176 mg/dl; Potassium 4.8 mmol/L (3.3-5.1); Sodium 140 mmol/L (135-145); Total Protein 7.6 g/dL (6.5-8.0); Triglycerides 101 mg/dL
== END 2021-08-05 08:44 | disposition home or self-care (01) ==
LOC: HO.HMGCLDS 08:43
PROVIDERS: PCP Internal Medicine; Visit Provider Internal Medicine
DX: Z00.01 Encounter for general adult medical examination with abnormal findings (principal); E78.9 Disorder of lipoprotein metabolism, unspecified; I10 Essential (primary) hypertension
CPT/HCPCS: 36415; 80053; 80061; 85025

== ENCOUNTER 2021-12-06 08:27 | Outpatient (REF) | payer OTHER, SELFPAY ==
[2021-12-06 11:43] LABS: Alanine Aminotransferase 20 U/L (0-31); Albumin Level 4.1 g/dL (3.5-5.0); Alkaline Phosphatase 67 U/L (39-117); Anion Gap 13 (12-20); Aspartate Amino Transferase 18 U/L (5-31); Bilirubin Total 0.3 mg/dL (0.0-1.0); Blood Urea Nitrogen 16 mg/dL (9-16); Calcium 9.2 mg/dL (8.4-10.2); Carbon Dioxide 23 mmol/L (22-29); Chloride 108 mmol/L (96-108); Cholesterol 164 mg/dL; Estimated Average Glucose 117 mg/dL; Estimated Glomerular Filt Rate > 60; Glucose Fasting 91 mg/dL (60-99); HDL Cholesterol 39 mg/dL; Hemoglobin A1c % 5.7 %; LDL Cholesterol Calculated 107 mg/dl; Potassium 4.1 mmol/L (3.3-5.1); Sodium 140 mmol/L (135-145); Triglycerides 90 mg/dL
== END 2021-12-06 08:28 | disposition home or self-care (01) ==
LOC: HO.HMGCLDS 08:27
PROVIDERS: PCP Internal Medicine; Visit Provider Internal Medicine
DX: I10 Essential (primary) hypertension (principal); E78.9 Disorder of lipoprotein metabolism, unspecified; R73.03 Prediabetes
CPT/HCPCS: 36415; 80053; 80061; 82550; 83036

== ENCOUNTER 2022-05-28 07:14 | Outpatient (REF) | payer OTHER, SELFPAY ==
[2022-05-28 11:50] LABS: Alanine Aminotransferase 21 U/L (0-31); Albumin Level 4.4 g/dL (3.5-5.0); Alkaline Phosphatase 79 U/L (39-117); Anion Gap 12 (12-20); Aspartate Amino Transferase 19 U/L (5-31); Bilirubin Total 0.6 mg/dL (0.0-1.0); Blood Urea Nitrogen 13 mg/dL (9-16); Calcium 10.4 mg/dL (8.4-10.2); Carbon Dioxide 26 mmol/L (22-29); Chloride 103 mmol/L (96-108); Cholesterol 238 mg/dL; Estimated Glomerular Filt Rate > 60; Glucose Fasting 93 mg/dL (60-99); HDL Cholesterol 46 mg/dL; LDL Cholesterol Calculated 169 mg/dl; Potassium 4.4 mmol/L (3.3-5.1); Sodium 137 mmol/L (135-145); Total Protein 7.4 g/dL (6.5-8.0); Triglycerides 119 mg/dL
== END 2022-05-28 07:15 | disposition home or self-care (01) ==
LOC: HO.HMGCLDS 07:14
PROVIDERS: PCP Internal Medicine; Visit Provider Internal Medicine
DX: Z00.01 Encounter for general adult medical examination with abnormal findings (principal); E78.9 Disorder of lipoprotein metabolism, unspecified; R73.03 Prediabetes; I10 Essential (primary) hypertension
CPT/HCPCS: 36415; 80053; 80061

== ENCOUNTER 2022-08-05 16:34 | Outpatient (REF) | payer OTHER, SELFPAY ==
[2022-08-05 17:25] LABS: Influenza A PCR NEGATIVE (Negative); Influenza B PCR NEGATIVE (Negative); Resp Syncy Virus RNA Qual PCR NEGATIVE (Negative); SARS COV2 PCR INHOUSE NEGATIVE (Negative)
== END 2022-08-05 16:35 | disposition home or self-care (01) ==
LOC: HO.LNP 16:34
PROVIDERS: Visit Provider Internal Medicine
DX: R43.9 Unspecified disturbances of smell and taste (principal); Z20.822 Contact with and (suspected) exposure to COVID-19
CPT/HCPCS: 0241U

== ENCOUNTER 2022-10-31 08:43 | Outpatient (REF) | payer OTHER, SELFPAY ==
[2022-10-31 11:55] LABS: Estimated Average Glucose 105 mg/dL; Hemoglobin A1c % 5.3 %
[2022-10-31 12:05] LABS: Alanine Aminotransferase 18 U/L (0-31); Albumin Level 4.3 g/dL (3.5-5.0); Alkaline Phosphatase 78 U/L (39-117); Anion Gap 13 (12-20); Aspartate Amino Transferase 19 U/L (5-31); Bilirubin Total 0.8 mg/dL (0.0-1.0); Blood Urea Nitrogen 15 mg/dL (9-16); Calcium 9.1 mg/dL (8.4-10.2); Carbon Dioxide 23 mmol/L (22-29); Chloride 106 mmol/L (96-108); Cholesterol 223 mg/dL; Estimated Glomerular Filt Rate > 60; Glucose Fasting 92 mg/dL (60-99); HDL Cholesterol 50 mg/dL; LDL Cholesterol Calculated 147 mg/dl; Potassium 4.3 mmol/L (3.3-5.1); Sodium 138 mmol/L (135-145); Total Protein 7.3 g/dL (6.5-8.0); Triglycerides 133 mg/dL
== END 2022-10-31 08:44 | disposition home or self-care (01) ==
LOC: HO.HMGCLDS 08:43
PROVIDERS: PCP Internal Medicine; Visit Provider Internal Medicine
DX: E78.9 Disorder of lipoprotein metabolism, unspecified (principal); R73.03 Prediabetes; I10 Essential (primary) hypertension
CPT/HCPCS: 36415; 80053; 80061; 83036

== ENCOUNTER 2023-03-28 21:44 | Emergency (ER) | payer OTHER, SELFPAY ==
[2023-03-28 21:54] VITALS: BP 151/99; PULSE 92; RESP 18; TEMP 36; O2SAT 100; BMI 21.9
--- NOTE | 2023-03-28 23:07 | ED_ITS ---
HPI - General Adult General Chief complaint: Ear Problems Stated complaint: right ear pain Time Seen by Provider: 03/28/23 22:31 Source: patient, RN notes reviewed and old records reviewed Mode of arrival: ambulatory Limitations: no limitations History of Present Illness HPI narrative: 42-year-old female presents for evaluation of right ear pain Patient reports that she was camping in [place] for the last week. She reports a scratching sensation in her ear since right before she left for vacation over week ago She also reports the pain just in front of her right ear when chewing Denies any drainage from the ear, fevers, chills Related Data Previous Rx's Medication Instructions Recorded losartan 25 mg tablet 25 mg PO DAILY 90 days #90 tabs 11/06/22 pravastatin 40 mg tablet 40 mg PO BEDTIME 90 days #90 tabs 02/22/23 phenylephrine HCl 10 mg tablet 10 mg PO Q4-6H #14 tabs 03/28/23 (Sinus Decongestant (PE)) Allergies Allergy/AdvReac Type Severity Reaction Status Date / Time No Known Allergies Allergy Verified 03/28/23 21:54 Review of Systems ENT: Reports otalgia PMFSH Past Medical History Medical History History of uterine fibroid Hypertension, essential Lipid disorder Surgical History Previous section S/P laparoscopic appendectomy Family History Family History Father No problems noted. Mother No problems noted. Brother No problems noted. Sister No problems noted. Daughter No problems noted. Social History Social History Household Members: Family Housing: House Do you presently have visiting nurse or other home services: No Alcohol intake: never Patient Tobacco Use Status: Never used Tobacco e-Cigarette/Vaping Use: Never Used Second Hand Smoke Exposure: No Advance Directives: No Advance Directives Information Provided: No service: No Current occupational status: employed Cognitive needs: No Hearing needs: No Vision needs: No Physical Exam ED Vital Signs: Vital Signs - 24 hr 03/28/23 21:54 Temperature 96.8 F Pulse Rate 92 Respiratory Rate 18 Blood Pressure 151/99 H Pulse Oximetry 100 Oxygen Delivery Method Room Air BMI result Body Mass Index 21.9 Const General: healthy appearing, comfortable, no acute distress, alert and awake Nutritional Appearance: well nourished Orientation/consciousness: patient oriented x3 HENMT Head: Yes normocephalic and Yes atraumatic Ears: external ears normal, TM's abnormal bilaterally (Middle ear effusions bilaterally without perforation, erythema) and Abnormal EAC present (Small strand of air within the right external ear canal and does not appear) Eyes Eyelids: Yes eyelids normal Conjunctivae: conjunctivae normal Sclerae: sclerae normal Corneas: corneas normal Pupils: Equal, round and reactive pupils present EOM: EOMs intact bilaterally Neck Neck: Yes full ROM Resp Effort & Inspection: normal respiratory effort, able to speak in complete sentences and not labored Skin General skin exam: no rashes or lesions noted and elasticity normal Neuro General: patient oriented x3 Cranial nerves: Yes Equal, round and reactive pupils present and Yes Bilaterally intact EOM present Cognition (Neuro): normal cognition Extrem Other: Moving all extremities well without any obvious deformities Medical Decision Making Medical Decision Making MDM Narrative: Patient has no evidence of acute otitis media or otitis externa. There is no evidence of cerumen impaction. The patient does have a tiny stranded here which is likely the poking/stabbing sensation she has been feeling. I discussed her options and she elected to have the ear irrigated. The ear was irrigated with 120 cc of warm water. Patient reports resolution of her symptoms. On re- evaluation I do not see any foreign body within the ear canal. Will treat her with Sudafed for her middle ear effusions bilaterally Differential Diagnosis Otitis media Otitis externa A foreign body Cerumen impaction Discharge Plan Discharge Clinical Impression: Acute pain of right ear Patient Disposition: Home, Self-Care Instructions: Earache (ED) Additional Instructions: There was a tiny strain of her with neuro right ear, there was no evidence of infection You do have fluid behind your ear drum This can be treated with Sudafed PE Do not stick anything in your years Follow-up with your primary doctor Prescriptions: New phenylephrine HCl [Sinus Decongestant (PE)] 10 mg tablet 10 mg PO Q4-6H Qty: 14 0RF No Action losartan 25 mg tablet 25 mg PO DAILY 90 Days Qty: 90 1RF pravastatin 40 mg tablet 40 mg PO BEDTIME 90 Days Qty: 90 0RF
== END 2023-03-28 23:27 | disposition home or self-care (01) ==
PROVIDERS: Emergency Provider Emergency Medicine; PCP Internal Medicine
DX: H92.01 Otalgia, right ear (principal)
CPT/HCPCS: 99283

== ENCOUNTER 2023-04-13 12:04 | Outpatient (AMB) | payer OTHER, SELFPAY ==
--- NOTE | 2023-04-13 12:34 | AM.OFFWIN_ITS ---
Intake Vital Signs 04/13/23 12:40 Height 5 ft 2 in BP 124/72 Blood Pressure Location Rt brachial Position Sitting Pulse 94 Pulse Source Pulse Oximeter Temp 97.4 F Temp Source Temporal Artery Scan Pulse Oximetry (%) 99 Oxygen Delivery Method Room Air Intake Visit Reasons: EP, right ear pain ([phone]) Intake Note: Pt is here c/o right ear pain since the first week of March. Patient Tobacco Use Status: Never used Tobacco Allergies No Known Allergies Allergy (Verified 04/14/23 09:35) Medication List - Last Reconciled 04/14/23 by Dante Roach MD losartan 25 mg PO DAILY 90 days dwcdgyvw-qcirpycdv-VH 3.5-10,000-1 mg/mL-unit/mL-% 4 drps otic (ears) Q8H phenylephrine HCl (Sinus Decongestant (PE)) 10 mg PO Q4-6H pravastatin 40 mg PO BEDTIME 90 days Do you need a note to return to daycare/school/sports/work: Yes HPI EP, right ear pain ([phone]) HPI Details [age] year female presents to the office for a sick visit. Patient is having irritation in the right ear for the past few weeks. She was on vacation last week. Initially she had pain symptoms which have since subsided. REPLACED BY [facility] Medical History History of uterine fibroid Hypertension, essential Lipid disorder Surgical History Previous section S/P laparoscopic appendectomy Family History Father No problems noted. Mother No problems noted. Brother No problems noted. Sister No problems noted. Daughter No problems noted. Social History Household Members: Family Housing: House Do you presently have visiting nurse or other home services: No Alcohol intake: never Patient Tobacco Use Status: Never used Tobacco e-Cigarette/Vaping Use: Never Used Second Hand Smoke Exposure: No service: No Current occupational status: employed Cognitive needs: No Hearing needs: No Vision needs: No Physical Exam Vital Signs: Last Vital Signs Temp 97.4 F 04/13/23 12:40 Pulse 94 04/13/23 12:40 BP 124/72 04/13/23 12:40 Pulse Ox 99 04/13/23 12:40 Oxygen Delivery Method Room Air 04/13/23 12:40 Const General: cooperative and healthy appearing Nutritional Appearance: well nourished Orientation/consciousness: patient oriented x3 Limitations: no limitations HEENT Other: Right ear: Ear canal is slightly congested. Tympanic membrane is visualized. Head: Yes normal to inspection Eyes General: appearance normal, both eyes and all related structures Neck Neck: Yes normal visual inspection Chest Chest palpation & inspection: normal palpation of entire chest wall Resp Effort & Inspection: normal respiratory effort Neuro General: patient oriented x3 Assessment & Plan Assessment & Plan (1) Otitis externa: Code(s): H60.90 - Unspecified otitis externa, unspecified ear Plan: Drops provided. If symptoms do not improve to follow-up here. Medications: New vknvechy-kmrcrtnze-JH 3.5-10,000-1 mg/mL-unit/mL-% 4 drps otic (ears) Q8H 10 mL 0RF Coding Level of Care Code Est Pt Level 3 (26990) Diagnoses Otitis externa H60.90
[2023-04-13 12:40] VITALS: BP 124/72; PULSE 94; TEMP 36.3; O2SAT 99
== END 2023-04-13 16:10 | disposition home or self-care (01) ==
PROVIDERS: PCP Internal Medicine; Visit Provider Internal Medicine
DX: H60.91 Unspecified otitis externa, right ear (principal)
CPT/HCPCS: 99213

== ENCOUNTER 2023-04-21 10:18 | Outpatient (AMB) | payer OTHER, SELFPAY ==
[2023-04-21 10:24] VITALS: BP 126/78; PULSE 79; O2SAT 99; BMI 22.2
--- NOTE | 2023-04-21 10:24 | A.OFFPC_ITS ---
Vital Signs 04/21/23 10:24 Height 5 ft 2 in Weight 121 lb 8 oz BMI 22.2 BP 126/78 Blood Pressure Location Rt brachial Position Sitting Pulse 79 Pulse Source Pulse Oximeter Pulse Oximetry (%) 99 Oxygen Delivery Method Room Air Intake Visit Reasons: PE Allergies No Known Allergies Allergy (Verified 04/21/23 10:24) Medication List - Last Reconciled 04/21/23 by Ayo Negrete MD losartan 25 mg PO DAILY 90 days ypuiprez-wjuxgioeq-RY 3.5-10,000-1 mg/mL-unit/mL-% 4 drps otic (ears) Q8H pravastatin 40 mg PO BEDTIME 90 days Tobacco use date assessed: 04/21/23 Dental Screening Dental Screen Date: 04/21/23 Did you have a dental visit in the last 12 months?: Yes Did you have a dental problem in the last 6 months where you did not have access to dental care?: No Was dental information given to patient?: No HPI PE HPI Details Patient is 42-year-old female came in today for physical exam Patient is in process of getting lumpectomy left breast She is waiting for the appointment by the surgery. Patient was found to have a pre cancerous cells on biopsy On examination today I can feel the lump between 1 and 02:00 o'clock left side Pap smear was in March by [facility] Labs were supposed to be done before this visit but patient misunderstood me she will have it done today. Medication list reviewed continue with medication blood pressure is well controlled Follow-up 4 months PFS Medical History History of uterine fibroid Hypertension, essential Lipid disorder Surgical History Previous section S/P laparoscopic appendectomy Family History Father No problems noted. Mother No problems noted. Brother No problems noted. Sister No problems noted. Daughter No problems noted. Social History Household Members: Family Housing: House Do you presently have visiting nurse or other home services: No Alcohol intake: never Patient Tobacco Use Status: Never used Tobacco e-Cigarette/Vaping Use: Never Used Second Hand Smoke Exposure: No service: No Current occupational status: employed Cognitive needs: No Hearing needs: No Vision needs: No Questionnaire PHQ-9 Over the last 2 weeks, how often have you been bothered by any of the following problems? 1. Little interest or pleasure in doing things: not at all 2. Feeling down, depressed, or hopeless: not at all 3. Trouble falling or staying asleep, or sleeping too much: several days 4. Feeling tired or having little energy: several days 5. Poor appetite or overeating: not at all 6. Feeling bad about yourself - or that you are a failure or have let yourself or your family down: not at all 7. Trouble concentrating on things, such as reading the newspaper or watching television: not at all 8. Moving or speaking so slowly that other people could have noticed. Or the opposite - being so fidgety or restless that you have been moving around a lot more than usual: not at all 9. Thoughts that you would be better off or of hurting yourself in some way: not at all Total score: 2 Depression Screening Interpretation: Negative 46408 - PHQ-9 Billing: Yes Source: Developed by Drs. Isidro Henning, Angela Cox, Frank Reddy and colleagues, with an educational massimo from [employer]. Thrive Questionnaire Date Thrive assessed: 04/21/23 I am a: Patient What is your living situation today?: I have a steady place to live Within the past 12 months, did the food you bought not last and you didn't have the money to get more?: Never true Within the past 12 months, did you worry whether your food would run out before you got money to buy more?: Never true Do you have trouble paying for medicines?: No Do you have trouble getting transportation to medical appointments?: No Do you have trouble paying your heating and electricity bill?: No Do you have trouble taking care of your child, family member or friend?: No Do you have trouble with day-to-day activities such as bathing, preparing meals, shopping, managing finances, etc.?: No Are you currently unemployed and looking for a job?: No Are you interested in more education?: No AUDIT C Alcohol Use Questionnaire (AUDIT-C) 1. How often do you have a drink containing alcohol?: Never 3. How often do you have six or more drinks on one occasion?: Never Total Score: 0 Score Reviewed/Action Taken: Yes RAMONA-7 AMB Questionnaire RAMONA-7 Date RAMONA - 7 assessed: 04/21/23 Feeling nervous, anxious, or on edge: 0 = Not at all Not being able to stop or control worryin = Not at all Worrying too much about different things: 0 = Not at all Trouble relaxin = Not at all Being so restless that it is hard to sit still: 0 = Not at all Becoming easily annoyed or irritable: 0 = Not at all Feeling afraid as if something awful might happen: 0 = Not at all Total RAMONA-7 score (0-4 normal; 5-9 mild; 10-14 moderate; 15-21 severe): 0 Source: Developed by Drs. Isidro Henning, Angela Cox, Frank Reddy and colleagues, with an educational massimo from [employer]. RAMONA-7 Assessment Billing RAMONA-7 Assessment Tool: RAMONA-7 Assessment 95372 Review of Systems Const Denies chills, Denies fever(s) and Denies headache(s) Eyes Denies blurry vision ENT Denies headache(s), Denies nasal discharge, Denies nasal obstruction, Denies odynophagia and Denies sinus pain Card Denies chest pain at rest and Denies chest pain with activity Resp Denies cough and Denies hemoptysis GI Denies diarrhea, Denies odynophagia, Denies vomiting and Denies hematemesis Reports as per HPI Musc Denies abnormal gait Skin/Breast Reports as per HPI Neuro Denies Neuro-related abnormal movements, Denies Abnormal speech present, Denies abnormal gait, Denies headache(s) and Denies Sensory deficit (Neuro) Psych Denies mood swings and Denies paranoia Endo Reports as per HPI [place]/Lymph Reports as per HPI Aller/Immun Reports as per HPI Physical exam (Primary Care) Vital Signs: Last Vital Signs Pulse 79 04/21/23 10:24 BP 126/78 04/21/23 10:24 Pulse Ox 99 04/21/23 10:24 Oxygen Delivery Method Room Air 04/21/23 10:24 BMI result Body Mass Index 22.2 Tobacco/Smoking Status: Tobacco use Status Tobacco use date assessed 04/21/23 04/21/23 10:27 Patient Tobacco Use Status Never used Tobacco 04/21/23 10:27 e-Cigarette/Vaping Use Never Used 04/21/23 10:27 PHQ-9: PHQ-9 Score PHQ-9: Total score 2 04/21/23 10:59 Depression Screening Interpretation: Negative Thrive Assessment: Date of Thrive Assessment Date Thrive assessed 04/21/23 04/21/23 10:59 Const General: cooperative, comfortable and no acute distress Orientation/consciousness: patient oriented x3 HENMT Head: Yes normocephalic and Yes atraumatic Eyes General: appearance normal, both eyes and all related structures Pupils: Equal, round and reactive pupils present EOM: EOMs intact bilaterally Neck Neck: Yes supple and No lymphadenopathy Thyroid: Thyroid normal Lymphatic: no lymphadenopathy noted Chest Chest/axillae images: 1. 1.5 in lump linear irregular Resp Effort & Inspection: normal respiratory effort and able to speak in complete sentences Auscultation: clear to auscultation bilaterally Cardio Heart sounds: S1 normal heart sound present and S2 normal heart sound present GI Palpation (GI): Soft to palpation and nontender Auscultation: normal bowel sounds General: Yes no CVA tenderness Back/Spine/Pelvis Back: no CVA tenderness Skin General skin exam: elasticity normal and turgor normal Neuro General: patient oriented x3 and gait normal Cranial nerves: Yes Equal, round and reactive pupils present Speech: No Abnormal speech present Sensory Exam: No Sensory deficit (Neuro) Coordination: tandem gait normal and Romberg test negative Extrem General: Yes normal exam except as noted and No edema Assessment and Plan Assessment & Plan (1) Encounter for general adult medical examination with abnormal findings: Code(s): Z00.01 - Encounter for general adult medical examination with abnormal findings (2) Lipid disorder: Code(s): E78.9 - Disorder of lipoprotein metabolism, unspecified (3) Hypertension, essential: Code(s): I10 - Essential (primary) hypertension (4) Pre-diabetes: Code(s): R73.03 - Prediabetes (5) Breast lump on left side at 1 o'clock position: Code(s): N63.21 - Unspecified lump in the left breast, upper outer quadrant Plan Patient is 42-year-old female came in today for physical exam Patient is in process of getting lumpectomy left breast She is waiting for the appointment by the surgery. Patient was found to have a pre cancerous cells on biopsy On examination today I can feel the lump between 1 and 02:00 o'clock left side Pap smear was in March by [facility] Labs were supposed to be done before this visit but patient misunderstood me she will have it done today. Medication list reviewed continue with medication blood pressure is well controlled Follow-up 4 months Coding Level of Care Code Est Pt Prev Care 40-64y(35502) Diagnoses Encounter for general adult medical examination with abnormal findings Z00.01 Lipid disorder E78.9 Hypertension, essential I10 Pre-diabetes R73.03 Breast lump on left side at 1 o'clock position N63.21 Additional Codes RAMONA-7 Assessment Billing - RAMONA-7 Assessment Tool: RAMONA-7 Assessment 20660 ([id number])
== END 2023-04-21 10:51 | disposition home or self-care (01) ==
PROVIDERS: PCP Internal Medicine; Visit Provider Internal Medicine
DX: Z00.01 Encounter for general adult medical examination with abnormal findings (principal); E78.9 Disorder of lipoprotein metabolism, unspecified; I10 Essential (primary) hypertension; R73.03 Prediabetes; N63.21 Unspecified lump in the left breast, upper outer quadrant
CPT/HCPCS: 99396

== ENCOUNTER 2023-04-21 10:51 | Outpatient (REF) | payer OTHER, SELFPAY ==
[2023-04-21 13:48] LABS: MANUAL DIFF FLAG NO
[2023-04-21 14:00] LABS: Basophils Percent Auto 0.7 % (0-2); Eosinophils Absolute Auto 0.1 X10*3/uL (0.0-0.4); Eosinophils Percent Auto 1.1 % (0-4); Hematocrit 43.8 % (37.0-47.0); Hemoglobin 14.1 g/dl (12.0-16.0); Imm Gran Abs Auto 0.02 X10*3/uL (0.00-0.03); Imm Gran Pct Auto 0.4 % (0.0-0.4); Lymphocytes Absolute Auto 2.2 X10*3/uL (1.2-4.9); Mean Corpuscular HGB Conc 32.2 g/dl (31.0-35.0); Mean Corpuscular Hemoglobin 29.2 pg (27.0-33.0); Mean Corpuscular Volume 90.7 fL (80.0-98.0); Mean Platelet Volume 9.9 fL (9.4-12.3); Monocytes Absolute Auto 0.4 X10*3/uL (0.1-1.2); Monocytes Percent Auto 7.8 % (2-11); Neutrophils Absolute Auto 2.8 x10*3/uL (2.0-8.3); Platelet Count 258 X10*3/uL (160-400); Red Blood Count 4.83 X10*6/uL (4.20-5.50); Red Cell Distribution Width 13.2 % (11.0-16.0); White Blood Count 5.5 X10*3/uL (4.8-10.8)
[2023-04-21 14:10] LABS: Estimated Average Glucose 114 mg/dL; Hemoglobin A1c % 5.6 %
[2023-04-21 14:38] LABS: Alanine Aminotransferase 20 U/L (0-31); Albumin Level 4.4 g/dL (3.5-5.0); Alkaline Phosphatase 75 U/L (39-117); Anion Gap 13 (12-20); Aspartate Amino Transferase 18 U/L (5-31); Bilirubin Total 0.3 mg/dL (0.0-1.0); Blood Urea Nitrogen 10 mg/dL (9-16); Calcium 9.9 mg/dL (8.4-10.2); Carbon Dioxide 25 mmol/L (22-29); Chloride 104 mmol/L (96-108); Cholesterol 244 mg/dL; Estimated Glomerular Filt Rate > 60; Glucose Fasting 92 mg/dL (60-99); HDL Cholesterol 47 mg/dL; LDL Cholesterol Calculated 137 mg/dl; Potassium 4.3 mmol/L (3.3-5.1); Sodium 138 mmol/L (135-145); Total Protein 7.9 g/dL (6.5-8.0); Triglycerides 301 mg/dL
== END 2023-04-21 10:52 | disposition home or self-care (01) ==
LOC: HO.HMGCLDS 10:51
PROVIDERS: PCP Internal Medicine; Visit Provider Internal Medicine
DX: I10 Essential (primary) hypertension (principal); R73.03 Prediabetes; E78.9 Disorder of lipoprotein metabolism, unspecified
CPT/HCPCS: 36415; 80053; 80061; 83036; 85025

== ENCOUNTER 2023-07-23 07:47 | Outpatient (AMB) | payer OTHER, SELFPAY ==
--- NOTE | 2023-07-23 08:03 | MHC.PC.OV ---
Vital Signs 07/23/23 08:04 Height 5 ft 2 in Weight 120 lb 6 oz BMI 22.0 BP 124/86 Blood Pressure Location Rt brachial Position Sitting Pulse 94 Pulse Source Pulse Oximeter Pulse Oximetry (%) 98 Oxygen Delivery Method Room Air Intake Visit Reasons: 3 month follow up Allergies No Known Allergies Allergy (Verified 07/23/23 08:05) Medication List - Last Reconciled 07/23/23 by Ayo Negrete MD losartan 25 mg PO DAILY 90 days pravastatin 40 mg PO BEDTIME 90 days Tobacco use date assessed: 07/23/23 Dental Screening Dental Screen Date: 07/23/23 Did you have a dental visit in the last 12 months?: Yes Did you have a dental problem in the last 6 months where you did not have access to dental care?: No Was dental information given to patient?: Patient has dentist HPI 3 month follow up HPI Details Patient is a 43-year-old female came in today for for her regular follow-up appointment Pre diabetes: Her hemoglobin A1c is 5.6, patient is controlling her diet Patient had lumpectomy done left breast, scar has healed, pathology report was benign Blood pressure is stable patient is on losartan 25 mg , patient is tolerating medication no side effects Lipid disorder: Continue pravastatin 40 mg daily , LDL is 137 Patient have follow-up appointment for December Flu vaccine was given today [facility] Medical History History of uterine fibroid Lipid disorder Hypertension, essential Surgical History S/P laparoscopic appendectomy Previous section Family History Father No problems noted. Mother No problems noted. Brother No problems noted. Sister No problems noted. Daughter No problems noted. Social History Household Members: Family Housing: House Do you presently have visiting nurse or other home services: No Alcohol intake: never Patient Tobacco Use Status: Never used Tobacco e-Cigarette/Vaping Use: Never Used Second Hand Smoke Exposure: No service: No Current occupational status: employed Cognitive needs: No Hearing needs: No Vision needs: No Questionnaire Thrive Questionnaire Date Thrive assessed: 04/21/23 RAMONA-7 AMB Questionnaire RAMONA-7 Date RAMONA - 7 assessed: 04/21/23 Source: Developed by Drs. Isidro Henning, Angela Cox, Frank Reddy and colleagues, with an educational massimo from [employer]. Review of Systems Const Denies chills and Denies fever(s) ENT Denies epistaxis and Denies nasal discharge Card Denies chest pain Resp Denies chest congestion, Denies cough and Denies hemoptysis GI Denies diarrhea and Denies nausea Skin/Breast Denies rash Neuro Reports no additional complaints Psych Reports no additional complaints Endo Reports no additional complaints Physical exam (Primary Care) Vital Signs: Last Vital Signs Pulse 94 07/23/23 08:04 BP 124/86 07/23/23 08:04 Pulse Ox 98 07/23/23 08:04 Oxygen Delivery Method Room Air 07/23/23 08:04 BMI result Body Mass Index 22.0 Tobacco/Smoking Status: Tobacco use Status Tobacco use date assessed 07/23/23 07/23/23 08:07 Patient Tobacco Use Status Never used Tobacco 07/23/23 08:07 e-Cigarette/Vaping Use Never Used 07/23/23 08:07 Thrive Assessment: Date of Thrive Assessment Date Thrive assessed 04/21/23 07/23/23 08:07 Const General: cooperative, comfortable and no acute distress Orientation/consciousness: patient oriented x3 HENMT Head: Yes normocephalic Eyes General: appearance normal, both eyes and all related structures Neck Neck: Yes supple Resp Effort & Inspection: normal respiratory effort, no cough and no stridor Cardio Rhythm: regular rhythm Heart sounds: S1 normal heart sound present and S2 normal heart sound present Skin General skin exam: turgor normal Neuro General: patient oriented x3, tone normal and moves all extremities Extrem Right lower extremity: no edema Left lower extremity: no edema Office Procedures Flu Questionnaire Does the patient have a severe egg allergy?: No Does the patient have severe life threatening allergies?: No Does the patient have a fever or illness today?: No Has the patient ever had Guillain-Rowan Syndrome?: No Has the patient ever had any past reaction to a flu shot?: No Immunizations flu vacc [id number] 6mos up(PF) 60 mcg(15 mcgx4)/0.5 mL IM syringe Performing Provider: Ayo Negrete MD Performing [place] [facility] Administered by: Nadiya Abraham CMA on 07/23/23 08:30 Dose Route Admin Location Dispensed Lot Number Expiration Date NDC 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 0.5 mL IM Left Deltoid 0.5 mL [id number] 03/12/24 36472-433-09 [employer] VIS Given Date VIS Provided VIS Publication Date 07/23/23 Single Vaccine 21 Eligibility Eligibility Date Funding Source Not [facility] Eligible 07/23/23 Private Assessment and Plan Assessment & Plan (1) Lipid disorder: Code(s): E78.9 - Disorder of lipoprotein metabolism, unspecified (2) Hypertension, essential: Code(s): I10 - Essential (primary) hypertension (3) Pre-diabetes: Code(s): R73.03 - Prediabetes Plan Patient is a 43-year-old female came in today for for her regular follow-up appointment Pre diabetes: Her hemoglobin A1c is 5.6, patient is controlling her diet Patient had lumpectomy done left breast, scar has healed, pathology report was benign Blood pressure is stable patient is on losartan 25 mg , patient is tolerating medication no side effects Lipid disorder: Continue pravastatin 40 mg daily , LDL is 137 Patient have follow-up appointment for December Flu vaccine was given today Orders: Orders Hemoglobin A1c 3 Months E78.9 - Disorder of lipoprotein metabolism, unspecified, I10 - Essential (primary) hypertension, R73.03 - Prediabetes Lipid Panel 3 Months E78.9 - Disorder of lipoprotein metabolism, unspecified, I10 - Essential (primary) hypertension, R73.03 - Prediabetes Influenza [id number] Immunization Today Z23 - Encounter for immunization Comprehensive [place]. Panel Fast 3 Months E78.9 - Disorder of lipoprotein metabolism, unspecified, I10 - Essential (primary) hypertension, R73.03 - Prediabetes Coding Level of Care Code Est Pt Level 3 (09202) Diagnoses Lipid disorder E78.9 Hypertension, essential I10 Pre-diabetes R73.03
[2023-07-23 08:04] VITALS: BP 124/86; PULSE 94; O2SAT 98; BMI 22.0
== END 2023-07-23 08:42 | disposition home or self-care (01) ==
PROVIDERS: PCP Internal Medicine; Visit Provider Internal Medicine
DX: E78.9 Disorder of lipoprotein metabolism, unspecified (principal); I10 Essential (primary) hypertension; R73.03 Prediabetes; Z23 Encounter for immunization
CPT/HCPCS: 90471; 90686; 99213

== ENCOUNTER 2023-12-20 09:43 | Outpatient (REF) | payer BC, MEDICAID, SELFPAY ==
[2023-12-20 14:00] LABS: Estimated Average Glucose 120 mg/dL; Hemoglobin A1c % 5.8 % (<6.0)
[2023-12-20 14:25] LABS: Alanine Aminotransferase 24 U/L (0-31); Alkaline Phosphatase 95 U/L (39-117); Anion Gap 9 (12-20); Aspartate Amino Transferase 22 U/L (5-31); Bilirubin Total 0.3 mg/dL (0.0-1.0); Blood Urea Nitrogen 12 mg/dL (9-16); Calcium 8.8 mg/dL (8.4-10.2); Carbon Dioxide 26 mmol/L (22-29); Chloride 107 mmol/L (96-108); Cholesterol 194 mg/dL (<200); Estimated Glomerular Filt Rate > 60; Glucose Fasting 97 mg/dL (60-99); HDL Cholesterol 49 mg/dL (>40); LDL Cholesterol Calculated 125 mg/dL (<100); Potassium 3.9 mmol/L (3.3-5.1); Sodium 138 mmol/L (135-145); Total Protein 7.1 g/dL (6.5-8.0); Triglycerides 100 mg/dL (<150)
== END 2023-12-20 09:44 | disposition home or self-care (01) ==
LOC: HO.HMGCLDS 09:43
PROVIDERS: PCP Internal Medicine; Visit Provider Internal Medicine
DX: E78.9 Disorder of lipoprotein metabolism, unspecified (principal); R73.03 Prediabetes; I10 Essential (primary) hypertension
CPT/HCPCS: 36415; 80053; 80061; 83036

== ENCOUNTER 2023-12-24 07:57 | Outpatient (AMB) | payer BC, MEDICAID, SELFPAY ==
[2023-12-24 08:08] VITALS: BP 130/86; PULSE 72; O2SAT 100; BMI 22.5
--- NOTE | 2023-12-24 08:08 | A.OFFPC_ITS ---
Vital Signs 12/24/23 08:08 Height 5 ft 2 in Weight 123 lb BMI 22.5 BP 130/86 Blood Pressure Location Lt brachial Position Sitting Pulse 72 Pulse Source Pulse Oximeter Pulse Oximetry (%) 100 Oxygen Delivery Method Room Air Intake Visit Reasons: 8 month follow up Allergies No Known Allergies Allergy (Verified 12/24/23 08:11) Medication List - Last Reconciled 12/24/23 by Ayo Negrete MD losartan 25 mg PO DAILY 90 days pravastatin 40 mg PO BEDTIME 90 days Tobacco use date assessed: 12/24/23 Dental Screening Dental Screen Date: 12/24/23 Did you have a dental visit in the last 12 months?: Yes Did you have a dental problem in the last 6 months where you did not have access to dental care?: No Was dental information given to patient?: Patient has dentist HPI 8 month follow up HPI Details Patient is a 43-year-old female came in today for for her regular follow-up appointment She is in her usual state of health Labs done recently reviewed Pre diabetes: Her hemoglobin A1c is 5.8, patient is controlling her diet Patient had lumpectomy done left breast, scar has healed, pathology report was benign Blood pressure is stable patient is on losartan 25 mg , patient is tolerating medication no side effects Lipid disorder: Continue pravastatin 40 mg daily lipids are stable Patient has appointment in April for physical examination Lab order placed to be done fasting before the visit [facility] Medical History History of uterine fibroid Lipid disorder Hypertension, essential Surgical History S/P laparoscopic appendectomy Previous section Family History Father No problems noted. Mother No problems noted. Brother No problems noted. Sister No problems noted. Daughter No problems noted. Social History Household Members: Family Housing: House Do you presently have visiting nurse or other home services: No Alcohol intake: never Comment: ABD LAMARTCH FEELS BETTER. Patient Tobacco Use Status: Never used Tobacco e-Cigarette/Vaping Use: Never Used Second Hand Smoke Exposure: No service: No Current occupational status: employed Cognitive needs: No Hearing needs: No Vision needs: No Questionnaire PHQ-9 Over the last 2 weeks, how often have you been bothered by any of the following problems? 1. Little interest or pleasure in doing things: not at all 2. Feeling down, depressed, or hopeless: not at all 3. Trouble falling or staying asleep, or sleeping too much: several days 4. Feeling tired or having little energy: several days 5. Poor appetite or overeating: not at all 6. Feeling bad about yourself - or that you are a failure or have let yourself or your family down: not at all 7. Trouble concentrating on things, such as reading the newspaper or watching television: not at all 8. Moving or speaking so slowly that other people could have noticed. Or the opposite - being so fidgety or restless that you have been moving around a lot more than usual: not at all 9. Thoughts that you would be better off or of hurting yourself in some way: not at all Total score: 2 Depression Screening Interpretation: Negative Depression Screening Done: Yes 02422 - PHQ-9 Billing: Yes Source: Developed by Drs. Isidro Henning, Angela Cox, Frank Reddy and colleagues, with an educational massimo from [employer]. Thrive Questionnaire Date Thrive assessed: 04/21/23 AUDIT C Alcohol Use Questionnaire (AUDIT-C) 1. How often do you have a drink containing alcohol?: Never Total Score: 0 RAMONA-7 AMB Questionnaire RAMONA-7 Date RAMONA - 7 assessed: 04/21/23 Source: Developed by Drs. Isidro Henning, Frank Leach and colleagues, with an educational massimo from [employer]. Review of Systems Const Denies chills and Denies fever(s) ENT Denies epistaxis and Denies nasal discharge Card Denies chest pain Resp Denies chest congestion, Denies cough and Denies hemoptysis GI Denies diarrhea and Denies nausea Skin/Breast Denies rash Neuro Reports no additional complaints Psych Reports no additional complaints Endo Reports no additional complaints Physical exam (Primary Care) Vital Signs: Last Vital Signs Pulse 72 12/24/23 08:08 BP 130/86 12/24/23 08:08 Pulse Ox 100 12/24/23 08:08 Oxygen Delivery Method Room Air 12/24/23 08:08 BMI result Body Mass Index 22.5 Tobacco/Smoking Status: Tobacco use Status Tobacco use date assessed 12/24/23 12/24/23 08:13 Patient Tobacco Use Status Never used Tobacco 12/24/23 08:09 e-Cigarette/Vaping Use Never Used 12/24/23 08:09 Depression Screening Interpretation: Negative Thrive Assessment: Date of Thrive Assessment Date Thrive assessed 04/21/23 12/24/23 08:09 Const General: cooperative, comfortable and no acute distress Orientation/consciousness: patient oriented x3 HENMT Head: Yes normocephalic Eyes General: appearance normal, both eyes and all related structures Neck Neck: Yes supple Resp Effort & Inspection: normal respiratory effort, no cough and no stridor Cardio Rhythm: regular rhythm Heart sounds: S1 normal heart sound present and S2 normal heart sound present Skin General skin exam: turgor normal Neuro General: patient oriented x3, tone normal and moves all extremities Extrem Right lower extremity: no edema Left lower extremity: no edema Assessment and Plan Assessment & Plan (1) Lipid disorder: Code(s): E78.9 - Disorder of lipoprotein metabolism, unspecified (2) Hypertension, essential: Code(s): I10 - Essential (primary) hypertension (3) Pre-diabetes: Code(s): R73.03 - Prediabetes Plan Patient is a 43-year-old female came in today for for her regular follow-up appointment She is in her usual state of health Labs done recently reviewed Pre diabetes: Her hemoglobin A1c is 5.8, patient is controlling her diet Patient had lumpectomy done left breast, scar has healed, pathology report was benign Blood pressure is stable patient is on losartan 25 mg , patient is tolerating medication no side effects Lipid disorder: Continue pravastatin 40 mg daily lipids are stable Patient has appointment in April for physical examination Lab order placed to be done fasting before the visit Orders: Orders Complete Blood Count Auto Diff Today E78.9 - Disorder of lipoprotein metabolism, unspecified, I10 - Essential (primary) hypertension, R73.03 - Prediabetes Comprehensive [place]. Panel Fast Today E78.9 - Disorder of lipoprotein metabolism, unspecified, I10 - Essential (primary) hypertension, R73.03 - Prediabetes Lipid Panel Today E78.9 - Disorder of lipoprotein metabolism, unspecified, I10 - Essential (primary) hypertension, R73.03 - Prediabetes TSH reflex Free T4 Today E78.9 - Disorder of lipoprotein metabolism, unspecified, I10 - Essential (primary) hypertension, R73.03 - Prediabetes Hemoglobin A1c Today E78.9 - Disorder of lipoprotein metabolism, unspecified, I10 - Essential (primary) hypertension, R73.03 - Prediabetes Coding Level of Care Code Est Pt Level 3 (66228) Diagnoses Lipid disorder E78.9 Hypertension, essential I10 Pre-diabetes R73.03
== END 2023-12-24 08:55 | disposition home or self-care (01) ==
PROVIDERS: PCP Internal Medicine; Visit Provider Internal Medicine
DX: E78.9 Disorder of lipoprotein metabolism, unspecified (principal); I10 Essential (primary) hypertension; R73.03 Prediabetes
CPT/HCPCS: 99213

== ENCOUNTER 2024-05-06 07:21 | Outpatient (REF) | payer BC, MEDICAID, SELFPAY ==
[2024-05-06 11:13] LABS: MANUAL DIFF FLAG NO
[2024-05-06 11:16] LABS: Basophils Absolute Auto 0.1 X10*3/uL (0.0-0.2); Eosinophils Absolute Auto 0.1 X10*3/uL (0.0-0.4); Eosinophils Percent Auto 1.4 % (0-4); Hemoglobin 13.5 g/dl (12.0-16.0); Imm Gran Abs Auto 0.03 X10*3/uL (0.00-0.03); Imm Gran Pct Auto 0.6 % (0.0-0.4); Lymphocytes Absolute Auto 1.8 X10*3/uL (1.2-4.9); Lymphocytes Percent Auto 37.7 % (20-40); Mean Corpuscular HGB Conc 32.9 g/dl (31.0-35.0); Mean Corpuscular Hemoglobin 29.5 pg (27.0-33.0); Mean Corpuscular Volume 89.7 fL (80.0-98.0); Mean Platelet Volume 9.7 fL (9.4-12.3); Monocytes Absolute Auto 0.5 X10*3/uL (0.1-1.2); Neutrophils Absolute Auto 2.4 x10*3/uL (2.0-8.3); Neutrophils Percent Auto 49.3 % (45-73); Platelet Count 224 X10*3/uL (160-400); Red Blood Count 4.57 X10*6/uL (4.20-5.50); Red Cell Distribution Width 13.8 % (11.0-16.0); White Blood Count 4.9 X10*3/uL (4.8-10.8)
[2024-05-06 11:27] LABS: Estimated Average Glucose 117 mg/dL; Hemoglobin A1c % 5.7 % (<6.0)
[2024-05-06 11:42] LABS: Alanine Aminotransferase 26 U/L (0-31); Albumin Level 4.2 g/dL (3.5-5.0); Alkaline Phosphatase 87 U/L (39-117); Anion Gap 12 (12-20); Aspartate Amino Transferase 22 U/L (5-31); Bilirubin Total 0.5 mg/dL (0.0-1.0); Blood Urea Nitrogen 12 mg/dL (9-16); Calcium 9.1 mg/dL (8.4-10.2); Carbon Dioxide 24 mmol/L (22-29); Chloride 106 mmol/L (96-108); Cholesterol 218 mg/dL (<200); Estimated Glomerular Filt Rate > 60; Glucose Fasting 96 mg/dL (60-99); HDL Cholesterol 49 mg/dL (>40); LDL Cholesterol Calculated 103 mg/dL (<100); Potassium 4.1 mmol/L (3.3-5.1); Sodium 138 mmol/L (135-145); Total Protein 7.2 g/dL (6.5-8.0); Triglycerides 331 mg/dL (<150)
[2024-05-06 12:02] LABS: TSH reflex Free T4 1.83 uIU/mL (0.32-4.0)
== END 2024-05-06 07:22 | disposition home or self-care (01) ==
LOC: HO.HMGCLDS 07:21
PROVIDERS: PCP Internal Medicine; Visit Provider Internal Medicine
DX: I10 Essential (primary) hypertension (principal); E78.9 Disorder of lipoprotein metabolism, unspecified; R73.03 Prediabetes
CPT/HCPCS: 36415; 80053; 80061; 83036; 84443; 85025

== ENCOUNTER 2024-05-12 13:19 | Outpatient (AMB) | payer BC, MEDICAID, SELFPAY ==
[2024-05-12 13:23] VITALS: BP 120/84; PULSE 84; O2SAT 100; BMI 22.7
--- NOTE | 2024-05-12 13:23 | A.OFFPC_ITS ---
Vital Signs 05/12/24 13:23 Height 5 ft 2 in Weight 124 lb BMI 22.7 BP 120/84 Blood Pressure Location Rt brachial Position Sitting Pulse 84 Pulse Source Pulse Oximeter Pulse Oximetry (%) 100 Oxygen Delivery Method Room Air Intake Visit Reasons: PE Allergies No Known Allergies Allergy (Verified 05/12/24 13:25) Medication List - Last Reconciled 05/12/24 by Ayo Negrete MD losartan 25 mg PO DAILY 90 days pravastatin 40 mg PO BEDTIME 90 days Tobacco use date assessed: 05/12/24 Dental Screening Dental Screen Date: 05/12/24 Did you have a dental visit in the last 12 months?: Yes Did you have a dental problem in the last 6 months where you did not have access to dental care?: No Was dental information given to patient?: Patient has dentist HPI PE HPI Details Physical exam appointment Blood pressure is well-controlled Mammogram was few days ago at [facility] Pap smears through [facility] Taking 2 medications Losartan 25 mg pravastatin 40 mg Follow-up 6 months and physical exam 1 year [facility] Medical History History of uterine fibroid Lipid disorder Hypertension, essential Surgical History S/P laparoscopic appendectomy Previous section Family History Father No problems noted. Mother No problems noted. Brother No problems noted. Sister No problems noted. Daughter No problems noted. 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 Patient Tobacco Use Status: Never used Tobacco e-Cigarette/Vaping Use: Never Used Second Hand Smoke Exposure: No service: No Current occupational status: employed Cognitive needs: No Hearing needs: No Vision needs: No Questionnaire PHQ-9 Over the last 2 weeks, how often have you been bothered by any of the following problems? 1. Little interest or pleasure in doing things: not at all 2. Feeling down, depressed, or hopeless: not at all 3. Trouble falling or staying asleep, or sleeping too much: several days 4. Feeling tired or having little energy: several days 5. Poor appetite or overeating: not at all 6. Feeling bad about yourself - or that you are a failure or have let yourself or your family down: not at all 7. Trouble concentrating on things, such as reading the newspaper or watching television: not at all 8. Moving or speaking so slowly that other people could have noticed. Or the opposite - being so fidgety or restless that you have been moving around a lot more than usual: not at all 9. Thoughts that you would be better off or of hurting yourself in some way: not at all Total score: 2 Depression Screening Interpretation: Negative Depression Screening Done: Yes 34406 - PHQ-9 Billing: Yes Source: Developed by Drs. Isidro Henning, Angela Cox, Frank Reddy and colleagues, with an educational massimo from [employer]. Thrive Questionnaire Date Thrive assessed: 05/12/24 I am a: Patient What is your living situation today?: I have a steady place to live Within the past 12 months, did the food you bought not last and you didn't have the money to get more?: Never true Within the past 12 months, did you worry whether your food would run out before you got money to buy more?: Never true Do you have trouble paying for medicines?: I choose not to answer this question Do you have trouble getting transportation to medical appointments?: No Do you have trouble paying your heating and electricity bill?: I choose not to answer this question Do you have trouble taking care of your child, family member or friend?: No Do you have trouble with day-to-day activities such as bathing, preparing meals, shopping, managing finances, etc.?: No Are you currently unemployed and looking for a job?: No Are you interested in more education?: No Please select the resources that you would like help with: Childcare Currently or been in a relationship where the following occur: No concerns reported THRIVE Score: 0 AUDIT C Alcohol Use Questionnaire (AUDIT-C) 1. How often do you have a drink containing alcohol?: Never 3. How often do you have six or more drinks on one occasion?: Never Total Score: 0 RAMONA-7 AMB Questionnaire RAMONA-7 Date RAMONA - 7 assessed: 05/12/24 Feeling nervous, anxious, or on edge: 0 = Not at all Not being able to stop or control worryin = Not at all Worrying too much about different things: 0 = Not at all Trouble relaxin = Not at all Being so restless that it is hard to sit still: 0 = Not at all Becoming easily annoyed or irritable: 0 = Not at all Feeling afraid as if something awful might happen: 0 = Not at all Total RAMONA-7 score (0-4 normal; 5-9 mild; 10-14 moderate; 15-21 severe): 0 Source: Developed by Drs. Isidro Henning, Angela Cox, Frank Reddy and colleagues, with an educational massimo from [employer]. Review of Systems Const Denies chills, Denies fever(s) and Denies headache(s) Eyes Denies blurry vision ENT Denies headache(s), Denies nasal discharge, Denies nasal obstruction, Denies odynophagia and Denies sinus pain Card Denies chest pain at rest and Denies chest pain with activity Resp Denies cough and Denies hemoptysis GI Denies diarrhea, Denies odynophagia, Denies vomiting and Denies hematemesis Reports as per HPI Musc Denies abnormal gait Skin/Breast Reports as per HPI Neuro Denies Neuro-related abnormal movements, Denies Abnormal speech present, Denies abnormal gait, Denies headache(s) and Denies Sensory deficit (Neuro) Psych Denies mood swings and Denies paranoia Endo Reports as per HPI [place]/Lymph Reports as per HPI Aller/Immun Reports as per HPI Physical exam (Primary Care) Vital Signs: Last Vital Signs Pulse 84 05/12/24 13:23 BP 120/84 05/12/24 13:23 Pulse Ox 100 05/12/24 13:23 Oxygen Delivery Method Room Air 05/12/24 13:23 BMI result Body Mass Index 22.7 Tobacco/Smoking Status: Tobacco use Status Tobacco use date assessed 12/24/23 12/24/23 08:13 Patient Tobacco Use Status Never used Tobacco 12/24/23 08:09 e-Cigarette/Vaping Use Never Used 12/24/23 08:09 Depression Screening Interpretation: Negative Thrive Assessment: Date of Thrive Assessment Date Thrive assessed 04/21/23 12/24/23 08:09 Currently or been in a relationship where the following occur: No concerns reported Const General: cooperative, comfortable and no acute distress Orientation/consciousness: patient oriented x3 HENMT Head: Yes normocephalic and Yes atraumatic Eyes General: appearance normal, both eyes and all related structures Pupils: Equal, round and reactive pupils present EOM: EOMs intact bilaterally Neck Neck: Yes supple and No lymphadenopathy Thyroid: Thyroid normal Lymphatic: no lymphadenopathy noted Resp Effort & Inspection: normal respiratory effort and able to speak in complete sentences Auscultation: clear to auscultation bilaterally Cardio Heart sounds: S1 normal heart sound present and S2 normal heart sound present GI Palpation (GI): Soft to palpation and nontender Auscultation: normal bowel sounds General: Yes no CVA tenderness Back/Spine/Pelvis Back: no CVA tenderness Skin General skin exam: elasticity normal and turgor normal Neuro General: patient oriented x3 and gait normal Cranial nerves: Yes Equal, round and reactive pupils present Speech: No Abnormal speech present Sensory Exam: No Sensory deficit (Neuro) Coordination: tandem gait normal and Romberg test negative Extrem General: Yes normal exam except as noted and No edema Assessment and Plan Assessment & Plan (1) Encounter for general adult medical examination with abnormal findings: Code(s): Z00.01 - Encounter for general adult medical examination with abnormal findings (2) Hypertension, essential: Code(s): I10 - Essential (primary) hypertension (3) Lipid disorder: Code(s): E78.9 - Disorder of lipoprotein metabolism, unspecified (4) Pre-diabetes: Code(s): R73.03 - Prediabetes Plan Physical exam appointment Blood pressure is well-controlled Mammogram was few days ago at [facility] Pap smears through [facility] Taking 2 medications Losartan 25 mg pravastatin 40 mg Follow-up 6 months and physical exam 1 year Orders: Orders Complete Blood Count Auto Diff 6 Months E78.9 - Disorder of lipoprotein metabolism, unspecified, I10 - Essential (primary) hypertension, R73.03 - Prediabetes Comprehensive [place]. Panel Fast 6 Months E78.9 - Disorder of lipoprotein metabolism, unspecified, I10 - Essential (primary) hypertension, R73.03 - Prediabetes Lipid Panel 6 Months E78.9 - Disorder of lipoprotein metabolism, unspecified, I10 - Essential (primary) hypertension, R73.03 - Prediabetes Coding Level of Care Code Est Pt Prev Care 40-64y(87031) Diagnoses Encounter for general adult medical examination with abnormal findings Z00.01 Hypertension, essential I10 Lipid disorder E78.9 Pre-diabetes R73.03
== END 2024-05-12 13:41 | disposition home or self-care (01) ==
PROVIDERS: PCP Internal Medicine; Visit Provider Internal Medicine
DX: Z00.00 Encounter for general adult medical examination without abnormal findings (principal); I10 Essential (primary) hypertension; E78.9 Disorder of lipoprotein metabolism, unspecified; R73.03 Prediabetes
CPT/HCPCS: 99396

== ENCOUNTER 2024-07-28 09:45 | Emergency (ER) | payer BC, MEDICAID, SELFPAY ==
--- NOTE | ~2024-07-28 | CT_ITS ---
EXAMINATION: CT ABDOMEN AND PELVIS WITHOUT CONTRAST CLINICAL INFORMATION: Flank pain. COMPARISON: CT abdomen/pelvis dated 12/01/2020. TECHNIQUE: Multidetector volumetric imaging was performed from the superior aspect of the liver through the pubic symphysis. Sagittal and coronal reformatted images were obtained on the technologist's workstation. This CT examination was performed using dose optimization techniques as appropriate, variously including the following: *Automated exposure control *Adjustment of mA and/or kV according to patient size (this includes techniques or standardized protocols for targeted exams where dose is matched to indication/reason for exam; i.e. extremities or head) *Use of iterative reconstruction technique DLP: 322 mGy-cm FINDINGS: LUNG BASES: The visualized lung bases are unremarkable. LIVER, GALLBLADDER, AND BILIARY TREE: The liver is normal in size and shape. Diffuse parenchymal hypoattenuation, consistent with steatosis. Fatty sparing adjacent to the gallbladder. No focal hepatic lesion or biliary ductal dilatation is present. The gallbladder is unremarkable with no evidence of radiopaque gallstones, gallbladder wall thickening, or obvious pericholecystic inflammatory changes. PANCREAS: Unremarkable. SPLEEN: Unremarkable. ADRENAL GLANDS: Unremarkable. KIDNEYS AND URETERS: The kidneys are normal in size, shape, and attenuation. There is a 0.2 cm stone within the proximal right ureter (axial image 259/692), new when compared to the prior examination. Nonobstructing 0.2 cm left renal stones. No hydronephrosis or hydroureter. No perinephric stranding. BLADDER: Unremarkable. GASTROINTESTINAL TRACT: No small or large bowel obstruction. No bowel wall thickening or inflammatory change. Status post appendectomy. PERITONEAL CAVITY: No intra-abdominal free air or free fluid. ABDOMINAL WALL: No significant hernia is appreciated. LYMPH NODES: No lymphadenopathy. VASCULAR: Unremarkable. PELVIC VISCERA: Retroverted and unremarkable uterus. No pelvic mass or fluid collection. OSSEOUS STRUCTURES: Unremarkable. CT/CT abdomen pelvis wo IV con IMPRESSION: 1. Proximal right ureteral stone measuring 0.2 cm, new when compared to the prior examination. No hydronephrosis or hydroureter. Nonobstructing left renal stones measuring 0.2 cm. 2. Hepatic steatosis. No hepatic parenchymal lesion or biliary ductal dilatation. 3. No intra-abdominal mass, lymphadenopathy, or ascites. Fleischner guidelines were followed. Electronically signed by: Jorge Alberto Treviño MD 07/28/2024 02:01 PM ISIAH
[2024-07-28 10:10] VITALS: BP 150/93; PULSE 101; RESP 18; TEMP 36.7; O2SAT 100; BMI 23.0
[2024-07-28 10:45] LABS: MANUAL DIFF FLAG NO
[2024-07-28 10:46] LABS: Basophils Percent Auto 0.5 % (0-2); Eosinophils Percent Auto 0.6 % (0-4); Hematocrit 40.2 % (37.0-47.0); Hemoglobin 13.4 g/dl (12.0-16.0); Imm Gran Abs Auto 0.03 X10*3/uL (0.00-0.03); Imm Gran Pct Auto 0.5 % (0.0-0.4); Lymphocytes Absolute Auto 1.9 X10*3/uL (1.2-4.9); Lymphocytes Percent Auto 30.3 % (20-40); Mean Corpuscular HGB Conc 33.3 g/dl (31.0-35.0); Mean Corpuscular Hemoglobin 29.5 pg (27.0-33.0); Mean Corpuscular Volume 88.4 fL (80.0-98.0); Mean Platelet Volume 9.2 fL (9.4-12.3); Monocytes Absolute Auto 0.4 X10*3/uL (0.1-1.2); Monocytes Percent Auto 6.3 % (2-11); Neutrophils Absolute Auto 3.8 x10*3/uL (2.0-8.3); Neutrophils Percent Auto 61.8 % (45-73); Platelet Count 246 X10*3/uL (160-400); Red Blood Count 4.55 X10*6/uL (4.20-5.50); Red Cell Distribution Width 13.1 % (11.0-16.0); White Blood Count 6.2 X10*3/uL (4.8-10.8)
--- NOTE | 2024-07-28 10:50 | ED_ITS ---
HPI - General Adult General Chief complaint: Back Pain/Injury Stated complaint: abd pain Time Seen by Provider: 07/28/24 10:38 Source: patient Mode of arrival: ambulatory History of Present Illness ED Provider: Jerica GARCIA narrative: 44-year-old female who has a history of high blood pressure and is on cholesterol medication comes in with 1 week of lower abdominal/pelvic discomfort, she is status post appendectomy, she has had bilateral tubal ligation and her LMP is the 1st part of this month, she denies any fever, chills with this pain but does report urinary frequency and burning. She has no history of renal colic. Related Data Previous Rx's ?Medication ?Instructions ?Recorded pravastatin 40 mg tablet 40 mg PO BEDTIME 90 days #90 tabs 05/17/24 losartan 25 mg tablet 25 mg PO DAILY 90 days #90 tabs 07/12/24 ondansetron 4 mg disintegrating 4 mg PO Q8H PRN nausea and 07/28/24 tablet vomiting #7 tabs tamsulosin 0.4 mg capsule (Flomax) 0.4 mg PO BEDTIME #5 caps 07/28/24 Allergies Allergy/AdvReac Type Severity Reaction Status Date / Time No Known Allergies Allergy Verified 07/28/24 10:12 Review of Systems 2 Review of Systems: Pertinent positives and negatives as stated in HPI [facility] Past Medical History Medical History History of uterine fibroid Lipid disorder Hypertension, essential Surgical History S/P laparoscopic appendectomy Previous section Family History Family History Father No problems noted. Mother No problems noted. Brother No problems noted. Sister No problems noted. Daughter No problems noted. Social History Social History Household Members: Family Housing: House Do you presently have visiting nurse or other home services: No Alcohol intake: never Comment: KYLE STITCH FEELS BETTER. Patient Tobacco Use Status: Never used Tobacco Smoked in Last 30 Days: No e-Cigarette/Vaping Use: Never Used Second Hand Smoke Exposure: No Use of substances other than those prescribed or required for medical reasons: No Advance Directives: No Advance Directives Information Provided: Yes Do you have a plan to hurt others: No Plan Patient : No service: No Current occupational status: employed Cognitive needs: No Hearing needs: No Vision needs: No Physical Exam ED Vital Signs: Vital Signs - 24 hr 07/28/24 10:10 07/28/24 13:01 Temperature 98.1 F 98.8 F Pulse Rate 101 H 105 H Respiratory Rate 18 20 Blood Pressure 150/93 H 142/91 H Pulse Oximetry 100 100 Oxygen Delivery Method Room Air Room Air BMI result Body Mass Index 23.0 VITAL SIGNS: Reviewed. GENERAL: Well developed, well nourished, in no acute distress. HEAD: Normocephalic/atraumatic EYES: PERRLA, EOMI LUNGS: Normal breath sounds. No adventitious sounds or accessory muscle use. SpO2<100> CARDIOVASCULAR: Regular rate and rhythm without noted murmurs ABDOMEN: Soft, mid lower abdominal discomfort without rebound, non-distended with bowel sounds. MUSCULOSKELETAL: No tenderness, deformities, or effusions noted on gross inspection. EXTREMITIES: No cyanosis, clubbing or edema. SKIN: Inspection of the skin reveals no rashes NEUROLOGIC: Alert and oriented x 4. Strength and sensation to light touch were grossly intact x 4. Medications Administered Discontinued Medications Generic Name Dose Route Start Last Admin Trade Name Freq PRN Reason Stop Dose Admin Acetaminophen 975 mg 07/28/24 10:50 07/28/24 11:16 Acetaminophen 325 Mg Tablet PO 07/28/24 10:51 975 mg ONCE ONE Administration Ibuprofen 400 mg 07/28/24 10:50 07/28/24 11:16 Ibuprofen 400 Mg Tablet PO 07/28/24 10:51 400 mg ONCE ONE Administration Ondansetron HCl 4 mg 07/28/24 10:50 07/28/24 11:16 Ondansetron Odt 4 Mg Tab.Rapdis TRANSLINGU 07/28/24 10:51 4 mg ONCE ONE Administration Medical Decision Making Medical Decision Making MDM Narrative: 44-year-old female with history and clinical presentation, DD DX: Cystitis, possible pyelonephritis, ectopic less likely, no chance of acute appendicitis as patient is status post appendectomy, low to no clinical suspicion for obstruction, patient has a bowel movement daily so low clinical suspicion for constipation. INTERVENTION: Zofran, Tylenol, ibuprofen. I reviewed and interpreted all investigations and there is no evidence of acute infection, anemia, or thrombocytopenia. I do not appreciate any MANDY/electrolyte or liver enzyme derangements. Urinalysis negative for UTI but there is obvious blood within the urine, urine is negative. On re-evaluation patient's pain has completely resolved. 1417: CT scan, official read finally completed and demonstrates small proximal ureterolithiasis 0.2 mm. All findings and labs discussed with the patient at bedside and she is otherwise discharged home. Differential Diagnosis Differential Diagnoses: The differential diagnosis associated with the presentation includes See above Admission/Observation Consideration of admission/observation: Escalation of care including admission/observation considered Patient does not meet inpatient level of care. Lab Data MDM Lab Attestation statement: I reviewed the patient's lab results. See above 07/28/24 10:40 07/28/24 10:40 Labs: Lab Results 07/28/24 07/28/24 Range/Units 10:40 10:57 WBC 6.2 (4.8-10.8) X10*3/uL RBC 4.55 (4.20-5.50) X10*6/uL Hgb 13.4 (12.0-16.0) g/dl Hct 40.2 (37.0-47.0) % MCV 88.4 (80.0-98.0) fL MCH 29.5 (27.0-33.0) pg MCHC 33.3 (31.0-35.0) g/dl RDW 13.1 (11.0-16.0) % Plt Count 246 (160-400) X10*3/uL MPV 9.2 L (9.4-12.3) fL Immature Gran % (Auto) 0.5 H (0.0-0.4) % Neut % (Auto) 61.8 (45-73) % Lymph % (Auto) 30.3 (20-40) % [place] % (Auto) 6.3 (2-11) % Eos % (Auto) 0.6 (0-4) % Baso % (Auto) 0.5 (0-2) % Lymph # (Auto) 1.9 (1.2-4.9) X10*3/uL [place] # (Auto) 0.4 (0.1-1.2) X10*3/uL Eos # (Auto) 0.0 (0.0-0.4) X10*3/uL Baso # (Auto) 0.0 (0.0-0.2) X10*3/uL Abs Immat Gran (auto) 0.03 (0.00-0.03) X10*3/uL Absolute Neuts (auto) 3.8 (2.0-8.3) x10*3/uL Absolute Nucleated RBC 0.000 (0.0-0.012) X10*3/uL Nucleated RBC % (auto) 0.0 (0.0-0.2) /100WBC Sodium 136 (135-145) mmol/L Potassium 4.4 (3.3-5.1) mmol/L Chloride 101 (96-108) mmol/L Carbon Dioxide 25 (22-29) mmol/L Anion Gap 14 (12-20) BUN 8 L (9-16) mg/dL Creatinine 0.72 (0.5-1.4) mg/dL Estim Creat Clear Calc 78.0 Estimated GFR > 60 Random Glucose 113 (60-115) mg/dL Calcium 10.3 H D (8.4-10.2) mg/dL Total Bilirubin 0.5 (0.0-1.0) mg/dL AST 30 (5-31) U/L ALT 37 H (0-31) U/L Alkaline Phosphatase 104 (39-117) U/L Total Protein 7.8 (6.5-8.0) g/dL Albumin 4.5 (3.5-5.0) g/dL Urine Color Yellow Urine Appearance Clear Urine pH 7.0 (5.0-9.0) Ur Specific [place] 1.015 (1.005-1.025) Urine Protein Negative (Neg-Trace) mg/dL Urine Glucose (UA) Negative (Negative) mg/dL Urine Ketones Trace (Negative) mg/dL Urine Blood Moderate (2+) H (Negative) Urine Nitrite Negative (Negative) Ur Leukocyte Esterase Negative (Negative) Urine RBC >20 H (0-2) /HPF Urine WBC 0-5 (0-5) /HPF Ur Squamous Epith Cells 0-2 (0-2) /HPF Urine Bacteria None Seen (None Seen) Hyaline Casts 0-2 (0-2) /LPF Urine Test NEGATIVE (NEGATIVE) Radiology Impression Discussion of test interpretation with radiology: I have reviewed the radiologist's reading. Radiologist Impression: See above External Record Review External record reviewed: Outpatient record and Outside ED record Prescription Management I considered prescription management with: Pain Medication Discharge Plan Discharge Clinical Impression: Renal colic, Ureterolithiasis Patient Disposition: Home, Self-Care Instructions: Renal Colic (ED), Low Oxalate Diet (ED), Ureteral Stones (ED) Additional Instructions: Tylenol 1000 mg, orally, every 6 hours as needed for pain control. Do not exceed 4000 mg within 24 hours. Ibuprofen 400 mg, orally with milk or food, every 6 hours as needed for pain control. I recommend that you take this with Tylenol for improved symptom relief. Complete medications as prescribed and drink plenty of fluids and please follow- up with your primary care doctor in the next 1-2 days for re-evaluation further outpatient management. Prescriptions: New tamsulosin [Flomax] 0.4 mg capsule 0.4 mg PO BEDTIME Qty: 5 0RF ondansetron 4 mg tablet,disintegrating 4 mg PO Q8H PRN (Reason: nausea and vomiting) Qty: 7 0RF No Action pravastatin 40 mg tablet 40 mg PO BEDTIME 90 Days Qty: 90 0RF losartan 25 mg tablet 25 mg PO DAILY 90 Days Qty: 90 0RF Referrals: Ayo Negrete MD [Primary Care Provider] - Sydnee Nugent MD [Physician] - Print Language: Surinamese
[2024-07-28 11:00] LABS: Alanine Aminotransferase 37 U/L (0-31); Albumin Level 4.5 g/dL (3.5-5.0); Alkaline Phosphatase 104 U/L (39-117); Anion Gap 14 (12-20); Aspartate Amino Transferase 30 U/L (5-31); Bilirubin Total 0.5 mg/dL (0.0-1.0); Blood Urea Nitrogen 8 mg/dL (9-16); Calcium 10.3 mg/dL (8.4-10.2); Carbon Dioxide 25 mmol/L (22-29); Chloride 101 mmol/L (96-108); Estimated Glomerular Filt Rate > 60; Glucose Random 113 mg/dL (60-115); Potassium 4.4 mmol/L (3.3-5.1); Sodium 136 mmol/L (135-145); Total Protein 7.8 g/dL (6.5-8.0)
[2024-07-28 11:07] LABS: Appearance Urine Clear; Color Urine Yellow; Glucose Urine UA Negative (Negative); Leukocyte Esterase Urine Negative (Negative); Nitrite Urine Negative (Negative); Specific Gravity - Urine 1.015 (1.005-1.025); UMIC TRIGGER UACC YES; Urine Blood Moderate (2+) (Negative); Urine Ketones Trace mg/dL (Negative); Urine Protein Negative (Neg-Trace)
[2024-07-28 11:09] LABS: UPreg QC Valid YES
[2024-07-28 11:10] LABS: Urine Pregnancy NEGATIVE (NEGATIVE)
[2024-07-28 11:12] LABS: Bacteria Urine None Seen (None Seen); Hyaline Casts Urine 0-2 /LPF (0-2); RBC Urine >20 /HPF (0-2); Squamous Epithelial Cell Urine 0-2 /HPF (0-2); WBC Urine 0-5 /HPF (0-5)
[2024-07-28] MEDS: Ibuprofen 400 MG TABLET PO (11:16)
[2024-07-28] MEDS: Ondansetron ODT 4 MG TAB.RAPDIS TRANSLINGU (11:16)
[2024-07-28] MEDS: Acetaminophen 325 MG TABLET 975 MG PO (11:16)
[2024-07-28 13:01] VITALS: BP 142/91; PULSE 105; RESP 20; TEMP 37.1; O2SAT 100
[2024-07-28 14:28] VITALS: BP 135/88; PULSE 92; RESP 17; TEMP 36.8; O2SAT 99
[2024-07-28 14:49] VITALS: BP 135/88; PULSE 92; RESP 18; TEMP 36.8; O2SAT 98
== END 2024-07-28 14:49 | disposition home or self-care (01) ==
PROVIDERS: Emergency Provider Student in an Organized Health Care Education/Training Program; PCP Internal Medicine
DX: N20.1 Calculus of ureter (principal); N23 Unspecified renal colic; R35.0 Frequency of micturition; I10 Essential (primary) hypertension; Z79.899 Other long term (current) drug therapy
CPT/HCPCS: 36415; 74176; 80053; 81001; 81003; 81025; 85025; 99284

== ENCOUNTER 2024-09-21 10:22 | Outpatient (AMB) | payer BC, MEDICAID, SELFPAY ==
--- NOTE | 2024-09-21 11:00 | A.OFFVIS_ITS ---
Intake Visit Reasons: nephrolithiasis Intake Note: Patient is present for SKIN TANNER, Nephrolithiasis Urology Medication:Tamsulosin Blood Thinner:NONE Software Development Manager Required: No Allergies No Known Allergies Allergy (Verified 09/21/24 11:13) HPI Comments Details: In ED on 07/28/24 for right flank pain, symptoms resolved US renal bladder 24 hr urine fu 14 weeks PFSH Medical History History of uterine fibroid Lipid disorder Hypertension, essential Surgical History S/P laparoscopic appendectomy Previous section Family History Father No problems noted. Mother No problems noted. Brother No problems noted. Sister No problems noted. Daughter No problems noted. 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 Patient Tobacco Use Status: Never used Tobacco e-Cigarette/Vaping Use: Never Used Second Hand Smoke Exposure: No service: No Current occupational status: employed Cognitive needs: No Hearing needs: No Vision needs: No Review of Systems Const All systems reviewed & are unremarkable except as noted in HPI and below and Unobtainable due to mental status Reports no additional complaints Eyes Reports no additional complaints ENT Reports no additional complaints Card Reports no additional complaints Resp Reports no additional complaints GI Reports no additional complaints Reports as per HPI Musc Reports no additional complaints Skin/Breast Reports system reviewed and no additional complaints, except as documented Neuro Reports no additional complaints Psych Reports no additional complaints Endo Reports no additional complaints [place]/Lymph Reports no additional complaints Aller/Immun Reports no additional complaints Results AMB Urinalysis, Automated UA Leukoctes 0 Lucy/uL Last Edit by Bárbara Echavarria on 09/21/24 11:14 UA Nitrite Negative Last Edit by Bárbara Echavarria on 09/21/24 11:14 UA Urobilinogen 3.5 mg/dL Last Edit by Bárbara Echavarria on 09/21/24 11:14 UA Protein 0 mg/dL Last Edit by Bárbara Echavarria on 09/21/24 11:14 UA pH 6.5 Last Edit by Bárbara Jericho on 09/21/24 11:14 UA Blood 0 Rasheed/uL Last Edit by Bárbara Jericho on 09/21/24 11:14 UA Specific [place] 1.015 Last Edit by Bárbara Jericho on 09/21/24 11:14 UA Ketone Negative Last Edit by Bárbara Jericho on 09/21/24 11:14 UA Bilirubin 0 mg/dL Last Edit by Bárbara Jericho on 09/21/24 11:14 UA Glucose 0 mg/dL Last Edit by Bárbara Jericho on 09/21/24 11:14 Results Reviewed Results Reviewed: Laboratory Last Values Urine pH (Auto) 6.5 09/21/24 11:04 Specific [place] (Auto) 1.015 09/21/24 11:04 Urine Protein (Auto) 0 mg/dL 09/21/24 11:04 Glucose (UA)(Auto) 0 mg/dL 09/21/24 11:04 Urine Ketones (Auto) Negative 09/21/24 11:04 Urine Blood (Auto) 0 Rasheed/uL 09/21/24 11:04 Urine Nitrite (Auto) Negative 09/21/24 11:04 Urine Bilirubin (Auto) 0 mg/dL 09/21/24 11:04 Urine Urobilinogen (Auto) 3.5 mg/dL 09/21/24 11:04 Leukocyte Esterase (Auto) 0 Lucy/uL 09/21/24 11:04 Date of Service: 07/28/24 CT ABDOMEN AND PELVIS WITHOUT CONTRAST CLINICAL INFORMATION: Flank pain. COMPARISON: CT abdomen/pelvis dated 12/01/2020. TECHNIQUE: Multidetector volumetric imaging was performed from the superior aspect of the liver through the pubic symphysis. Sagittal and coronal reformatted images were obtained on the technologist's workstation. This CT examination was performed using dose optimization techniques as appropriate, variously including the following: *Automated exposure control *Adjustment of mA and/or kV according to patient size (this includes techniques or standardized protocols for targeted exams where dose is matched to indication/reason for exam; i.e. extremities or head) *Use of iterative reconstruction technique DLP: 322 mGy-cm FINDINGS: LUNG BASES: The visualized lung bases are unremarkable. LIVER, GALLBLADDER, AND BILIARY TREE: The liver is normal in size and shape. Diffuse parenchymal hypoattenuation, consistent with steatosis. Fatty sparing adjacent to the gallbladder. No focal hepatic lesion or biliary ductal dilatation is present. The gallbladder is unremarkable with no evidence of radiopaque gallstones, gallbladder wall thickening, or obvious pericholecystic inflammatory changes. PANCREAS: Unremarkable. SPLEEN: Unremarkable. ADRENAL GLANDS: Unremarkable. KIDNEYS AND URETERS: The kidneys are normal in size, shape, and attenuation. There is a 0.2 cm stone within the proximal right ureter (axial image 259/692), new when compared to the prior examination. Nonobstructing 0.2 cm left renal stones. No hydronephrosis or hydroureter. No perinephric stranding. BLADDER: Unremarkable. GASTROINTESTINAL TRACT: No small or large bowel obstruction. No bowel wall thickening or inflammatory change. Status post appendectomy. PERITONEAL CAVITY: No intra-abdominal free air or free fluid. ABDOMINAL WALL: No significant hernia is appreciated. LYMPH NODES: No lymphadenopathy. VASCULAR: Unremarkable. PELVIC VISCERA: Retroverted and unremarkable uterus. No pelvic mass or fluid collection. OSSEOUS STRUCTURES: Unremarkable. IMPRESSION: 1. Proximal right ureteral stone measuring 0.2 cm, new when compared to the prior examination. No hydronephrosis or hydroureter. Nonobstructing left renal stones measuring 0.2 cm. 2. Hepatic steatosis. No hepatic parenchymal lesion or biliary ductal dilatation. 3. No intra-abdominal mass, lymphadenopathy, or ascites. Assessment & Plan Assessment & Plan (1) Ureterolithiasis: Code(s): N20.1 - Calculus of ureter Category: Medical (2) Kidney stone: Code(s): N20.0 - Calculus of kidney Category: Medical Orders: Orders AMB Urinalysis Automated Today Z13.9 - Encounter for screening, unspecified Coding Diagnoses Ureterolithiasis N20.1 Kidney stone N20.0
== END 2024-09-21 11:50 | disposition home or self-care (01) ==
PROVIDERS: PCP Internal Medicine; Visit Provider Urology
DX: Z13.9 Encounter for screening, unspecified (principal)

== ENCOUNTER → 2024-09-21 10:22 | Outpatient (BNVA) | payer BC, MEDICAID, SELFPAY | PROVIDERS: PCP Internal Medicine; Visit Provider Urology | DX: N20.2 Calculus of kidney with calculus of ureter (principal) | CPT/HCPCS: 81003 ==

== ENCOUNTER 2024-10-31 07:48 | Outpatient (REF) | payer BC, MEDICAID, SELFPAY ==
[2024-10-31 09:54] LABS: MANUAL DIFF FLAG NO
[2024-10-31 09:59] LABS: Basophils Percent Auto 0.6 % (0-2); Eosinophils Absolute Auto 0.1 X10*3/uL (0.0-0.4); Eosinophils Percent Auto 0.9 % (0-4); Hematocrit 40.7 % (37.0-47.0); Hemoglobin 13.1 g/dl (12.0-16.0); Imm Gran Abs Auto 0.01 X10*3/uL (0.00-0.03); Imm Gran Pct Auto 0.2 % (0.0-0.4); Lymphocytes Absolute Auto 1.8 X10*3/uL (1.2-4.9); Lymphocytes Percent Auto 33.8 % (20-40); Mean Corpuscular HGB Conc 32.2 g/dl (31.0-35.0); Mean Corpuscular Hemoglobin 28.1 pg (27.0-33.0); Mean Corpuscular Volume 87.2 fL (80.0-98.0); Mean Platelet Volume 10.1 fL (9.4-12.3); Monocytes Absolute Auto 0.4 X10*3/uL (0.1-1.2); Monocytes Percent Auto 8.1 % (2-11); Neutrophils Percent Auto 56.4 % (45-73); Platelet Count 242 X10*3/uL (160-400); Red Blood Count 4.67 X10*6/uL (4.20-5.50); Red Cell Distribution Width 13.7 % (11.0-16.0); White Blood Count 5.3 X10*3/uL (4.8-10.8)
[2024-10-31 10:27] LABS: Alanine Aminotransferase 26 U/L (0-31); Albumin Level 4.3 g/dL (3.5-5.0); Alkaline Phosphatase 91 U/L (39-117); Anion Gap 10 (12-20); Aspartate Amino Transferase 28 U/L (5-31); Bilirubin Total 0.3 mg/dL (0.0-1.0); Blood Urea Nitrogen 14 mg/dL (9-16); Carbon Dioxide 24 mmol/L (22-29); Chloride 108 mmol/L (96-108); Cholesterol 175 mg/dL (<200); Estimated Glomerular Filt Rate > 60; Glucose Fasting 112 mg/dL (60-99); HDL Cholesterol 46 mg/dL (>40); LDL Cholesterol Calculated 94 mg/dL (<100); Potassium 3.9 mmol/L (3.3-5.1); Sodium 138 mmol/L (135-145); Total Protein 7.9 g/dL (6.5-8.0); Triglycerides 176 mg/dL (<150)
== END 2024-10-31 07:49 | disposition home or self-care (01) ==
LOC: HO.HMGCLDS 07:48
PROVIDERS: PCP Internal Medicine; Visit Provider Internal Medicine
DX: E78.9 Disorder of lipoprotein metabolism, unspecified (principal); I10 Essential (primary) hypertension; R73.03 Prediabetes
CPT/HCPCS: 36415; 80053; 80061; 85025

== ENCOUNTER 2024-11-10 09:17 | Outpatient (AMB) | payer BC, MEDICAID, SELFPAY ==
--- NOTE | 2024-11-10 09:18 | MHC.PC.OV ---
Vital Signs 11/10/24 09:19 Height 5 ft 2 in Weight 124 lb 4 oz BMI 22.7 BP 118/86 Blood Pressure Location Lt brachial Position Sitting Pulse 86 Pulse Source Pulse Oximeter Pulse Oximetry (%) 98 Oxygen Delivery Method Room Air Intake Visit Reasons: 6m follow up Allergies No Known Allergies Allergy (Verified 11/10/24 09:19) Medication List - Last Reconciled 11/10/24 by Ayo Negrete MD losartan 25 mg PO DAILY 90 days pravastatin 40 mg PO BEDTIME 90 days Tobacco use date assessed: 11/10/24 Dental Screening Dental Screen Date: 11/10/24 Did you have a dental visit in the last 12 months?: Yes Did you have a dental problem in the last 6 months where you did not have access to dental care?: No Was dental information given to patient?: Patient has dentist HPI 6m follow up HPI Details History - The patient is a 44-year-old female came in for her regular follow-up visit. - Recovery from a recent episode of viral upper respiratory infection was discussed, marked by sinus pressure and cough for one week, now improving. - Current management of nephrolithiasis includes a planned urine test and bilateral renal imaging through Urology - Essential hypertension is being managed with losartan, and the blood pressure remains well-controlled. - Hyperlipidemia management with pravastatin continues, with cholesterol levels remaining stable. - Prediabetes is monitored after a recent fasting glucose measurement of 112 mg/dL, highlighting a past history of gestational diabetes. Dietary adjustments were recommended for management. Problem List - Viral Upper Respiratory Infection - Nephrolithiasis - Essential Hypertension - Hyperlipidemia - Prediabetes Patient Instructions - Continue losartan and pravastatin as prescribed. - Focus on dietary control to manage prediabetes and prevent progression. - Attend scheduled urine tests and renal scans as planned. - Maintain regular follow-ups to monitor blood pressure, cholesterol, and fasting glucose levels. - Monitor for any recurrent symptoms of nephrolithiasis, and follow up promptly if they occur. Review of Systems - General: No fever no chills - Neurological: No headaches no dizziness - Ear nose throat: No sore throat no hearing difficulty no ear pain - Cardiovascular: No syncope, no chest pain, no palpitations - Gastrointestinal: No nausea vomiting or diarrhea - Endocrine: No polyuria polydipsia no heat intolerance - Genitourinary: No dysuria , no blood in urine Physical Exam - General: No acute distress - HEENT: No acute findings - Neck: Supple - Respiratory system: Able to talk in full sentences, no audible wheeze - cardiovascular: S1-S2 regular in rate and rhythm - Gastrointestinal: No pain - Extremities: No new findings - 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 Mother No problems noted. Brother No problems noted. Sister No problems noted. Daughter No problems noted. Social History Household Members: Family Housing: House Do you presently have visiting nurse or other home services: No Alcohol intake: never Comment: [employer]EL[employer] BETTER. Patient Tobacco Use Status: Never used Tobacco e-Cigarette/Vaping Use: Never Used Second Hand Smoke Exposure: No service: No Current occupational status: employed Cognitive needs: No Hearing needs: No Vision needs: No Questionnaire PHQ-9 Over the last 2 weeks, how often have you been bothered by any of the following problems? 1. Little interest or pleasure in doing things: not at all 2. Feeling down, depressed, or hopeless: not at all 3. Trouble falling or staying asleep, or sleeping too much: several days 4. Feeling tired or having little energy: not at all 5. Poor appetite or overeating: not at all 6. Feeling bad about yourself - or that you are a failure or have let yourself or your family down: not at all 7. Trouble concentrating on things, such as reading the newspaper or watching television: not at all 8. Moving or speaking so slowly that other people could have noticed. Or the opposite - being so fidgety or restless that you have been moving around a lot more than usual: not at all 9. Thoughts that you would be better off or of hurting yourself in some way: not at all Total score: 1 Depression Screening Interpretation: Negative Depression Screening Done: Yes 08804 - PHQ-9 Billing: Yes Source: Developed by Drs. Isidro Henning, Angela Cox, Frank Reddy and colleagues, with an educational massimo from [employer]. Thrive Questionnaire Date Thrive assessed: 11/10/24 I am a: Patient What is your living situation today?: I have a steady place to live Within the past 12 months, did the food you bought not last and you didn't have the money to get more?: Never true Within the past 12 months, did you worry whether your food would run out before you got money to buy more?: Never true Do you have trouble paying for medicines?: No Do you have trouble getting transportation to medical appointments?: No Do you have trouble paying your heating and electricity bill?: No Do you have trouble taking care of your child, family member or friend?: No Do you have trouble with day-to-day activities such as bathing, preparing meals, shopping, managing finances, etc.?: No Are you currently unemployed and looking for a job?: No Are you interested in more education?: No Please select the resources that you would like help with: None Currently or been in a relationship where the following occur: No concerns reported THRIVE Score: 0 AUDIT C Alcohol Use Questionnaire (AUDIT-C) 1. How often do you have a drink containing alcohol?: Never 3. How often do you have six or more drinks on one occasion?: Never Total Score: 0 Score Reviewed/Action Taken: Yes RAMNOA-7 AMB Questionnaire RAMONA-7 Date RAMONA - 7 assessed: 11/10/24 Feeling nervous, anxious, or on edge: 0 = Not at all Not being able to stop or control worryin = Not at all Worrying too much about different things: 0 = Not at all Trouble relaxin = Not at all Being so restless that it is hard to sit still: 0 = Not at all Becoming easily annoyed or irritable: 0 = Not at all Feeling afraid as if something awful might happen: 0 = Not at all Total RAMONA-7 score (0-4 normal; 5-9 mild; 10-14 moderate; 15-21 severe): 0 Source: Developed by Angela Cuellar Kurt Kroenke and colleagues, with an educational massimo from [employer]. RAMONA-7 Assessment Billing RAMONA-7 Assessment Tool: RAMONA-7 Assessment 01354 Physical exam (Primary Care) Vital Signs: Last Vital Signs Pulse 86 11/10/24 09:19 BP 118/86 11/10/24 09:19 Pulse Ox 98 11/10/24 09:19 Oxygen Delivery Method Room Air 11/10/24 09:19 BMI result Body Mass Index 22.7 Tobacco/Smoking Status: Tobacco use Status Tobacco use date assessed 11/10/24 11/10/24 09:26 Patient Tobacco Use Status Never used Tobacco 11/10/24 09:21 e-Cigarette/Vaping Use Never Used 11/10/24 09:21 PHQ-9: PHQ-9 Score PHQ-9: Total score 1 11/10/24 09:29 Depression Screening Interpretation: Negative Thrive Assessment: Date of Thrive Assessment Date Thrive assessed 11/10/24 11/10/24 09:29 Currently or been in a relationship where the following occur: No concerns reported Coding Level of Care Code Est Pt Level 3 (64144) Complex EM visit Add On G2211 Diagnoses Lipid disorder E78.9 Hypertension, essential I10 Ureterolithiasis N20.1 Pre-diabetes R73.03 Kidney stone N20.0 Additional Codes RAMONA-7 Assessment Billing - RAMONA-7 Assessment Tool: RAMONA-7 Assessment 54455 ([id number]) PHQ-9 - 60084 - PHQ-9 Billing: Yes ([id number]) Assessment & Plan Assessment & Plan (1) Lipid disorder: Code(s): E78.9 - Disorder of lipoprotein metabolism, unspecified Category: Medical (2) Hypertension, essential: Code(s): I10 - Essential (primary) hypertension Category: Medical (3) Ureterolithiasis: Code(s): N20.1 - Calculus of ureter Category: Medical (4) Pre-diabetes: Code(s): R73.03 - Prediabetes Category: Medical (5) Kidney stone: Code(s): N20.0 - Calculus of kidney Category: Medical Plan History - The patient is a 44-year-old female came in for her regular follow-up visit. - Recovery from a recent episode of viral upper respiratory infection was discussed, marked by sinus pressure and cough for one week, now improving. - Current management of nephrolithiasis includes a planned urine test and bilateral renal imaging through Urology - Essential hypertension is being managed with losartan, and the blood pressure remains well-controlled. - Hyperlipidemia management with pravastatin continues, with cholesterol levels remaining stable. - Prediabetes is monitored after a recent fasting glucose measurement of 112 mg/dL, highlighting a past history of gestational diabetes. Dietary adjustments were recommended for management. Problem List - Viral Upper Respiratory Infection - Nephrolithiasis - Essential Hypertension - Hyperlipidemia - Prediabetes Patient Instructions - Continue losartan and pravastatin as prescribed. - Focus on dietary control to manage prediabetes and prevent progression. - Attend scheduled urine tests and renal scans as planned. - Maintain regular follow-ups to monitor blood pressure, cholesterol, and fasting glucose levels. - Monitor for any recurrent symptoms of nephrolithiasis, and follow up promptly if they occur. Orders: Orders Comprehensive [place]. Panel Fast 5 Months E78.9 - Disorder of lipoprotein metabolism, unspecified, I10 - Essential (primary) hypertension, N20.0 - Calculus of kidney, R73.03 - Prediabetes Hemoglobin A1c 5 Months E78.9 - Disorder of lipoprotein metabolism, unspecified, I10 - Essential (primary) hypertension, N20.0 - Calculus of kidney, R73.03 - Prediabetes Complete Blood Count Auto Diff 5 Months E78.9 - Disorder of lipoprotein metabolism, unspecified, I10 - Essential (primary) hypertension, N20.0 - Calculus of kidney, R73.03 - Prediabetes Lipid Panel 5 Months E78.9 - Disorder of lipoprotein metabolism, unspecified, I10 - Essential (primary) hypertension, N20.0 - Calculus of kidney, R73.03 - Prediabetes Medications: Refilled losartan 25 mg PO DAILY 90 days 90 tabs 1RF I10 - Essential (primary) hypertension pravastatin 40 mg PO BEDTIME 90 days 90 tabs 1RF
[2024-11-10 09:19] VITALS: BP 118/86; PULSE 86; O2SAT 98; BMI 22.7
== END 2024-11-10 10:59 | disposition home or self-care (01) ==
PROVIDERS: PCP Internal Medicine; Visit Provider Internal Medicine
DX: E78.9 Disorder of lipoprotein metabolism, unspecified (principal); I10 Essential (primary) hypertension; N20.1 Calculus of ureter; R73.03 Prediabetes; N20.0 Calculus of kidney

== ENCOUNTER → 2024-11-10 09:17 | Outpatient (BNVA) | payer BC, MEDICAID, SELFPAY | PROVIDERS: PCP Internal Medicine; Visit Provider Internal Medicine | DX: E78.9 Disorder of lipoprotein metabolism, unspecified (principal); I10 Essential (primary) hypertension; N20.1 Calculus of ureter; R73.03 Prediabetes; Z79.899 Other long term (current) drug therapy | CPT/HCPCS: 96127 ==

== ENCOUNTER 2024-12-07 08:08 | Outpatient (REF) | payer BC, SELFPAY ==
--- NOTE | ~2024-12-07 | US_ITS ---
CLINICAL HISTORY: N20.0 - Calculus of kidney US Renal Comparison: None Findings: Right kidney normal size and echotexture, 11.5 cm length. Left kidney normal size and echotexture, 10.6 cm length. No hydronephrosis of either kidney. Normal color Doppler. Urinary bladder is unremarkable. Prevoid volume 638 mL. Postvoid volume 15 mL. Bilateral ureteral jets are visualized. IMPRESSION: 1. Normal kidneys. This document has been electronically signed by: Torres Mantilla MD on 12/07/2024 18:22:36
== END 2024-12-07 08:09 | disposition home or self-care (01) ==
LOC: HO.HMGCX 08:08
PROVIDERS: PCP Internal Medicine; Visit Provider Urology
DX: N20.0 Calculus of kidney (principal)
CPT/HCPCS: 76770

== ENCOUNTER → 2024-12-07 08:12 | Outpatient (BNV) | payer BC, SELFPAY | PROVIDERS: PCP Internal Medicine; Visit Provider Specialist | DX: N20.0 Calculus of kidney (principal) | CPT/HCPCS: 76770 ==

== ENCOUNTER 2024-12-29 08:20 | Outpatient (AMB) | payer BC, MEDICAID, SELFPAY ==
--- NOTE | 2024-12-29 04:48 | MHC.OFFVIS ---
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 Instructed on importance of fluid intake. Markel was in the ED on 07/28/24 for right flank pain, symptoms resolved. Discussed CT results CTAP-07/28/24--Proximal right ureteral stone measuring 0.2 cm, No hydronephrosis or hydroureter. Nonobstructing left renal stones measuring 0.2 cm. I have discussed diet modification to decrease risk of forming more kidney stones. I have discussed low oxalate diet and specific foods to avoid including certain green leafy vegetables, chocalate, nuts, tea, beets, rubarb; low sodium, decreased use of animal protein and the importance of hydration drinking up to 2-2.5 liters of fluids and use of adding lemon to water to increase citrate in the diet. A pamphlet is also provided today. Plan--US renal bladder, 24 hr urine fu 14 weeks [facility] Medical History History of uterine fibroid Lipid disorder Hypertension, essential Surgical History S/P laparoscopic appendectomy Previous section Family History Father No problems noted. Mother No problems noted. Brother No problems noted. Sister No problems noted. Daughter No problems noted. 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 Patient Tobacco Use Status: Never used Tobacco e-Cigarette/Vaping Use: Never Used Second Hand Smoke Exposure: No service: No Current occupational status: employed Cognitive needs: No Hearing needs: No Vision needs: No Results AMB Urinalysis, Automated UA Leukoctes 0 Lucy/uL Last Edit by Lillian Tao on 12/29/24 16:44 UA Nitrite Negative Last Edit by Crystal Tao on 12/29/24 16:44 UA Urobilinogen 0.2 mg/dL Last Edit by Crystal Tao on 12/29/24 16:44 UA Protein 0 mg/dL Last Edit by Crystal Tao on 12/29/24 16:44 UA pH 6.0 Last Edit by Lillian Tao on 12/29/24 16:44 UA Blood 0 Rasheed/uL Last Edit by Crystal Tao on 12/29/24 16:44 UA Specific [place] 1.010 Last Edit by Lillian Tao on 12/29/24 16:44 UA Ketone Negative Last Edit by Lillian Tao on 12/29/24 16:44 UA Bilirubin 0 mg/dL Last Edit by Lillian Tao on 12/29/24 16:44 UA Glucose 0 mg/dL Last Edit by Lillian Tao on 12/29/24 16:44 Assessment & Plan Assessment & Plan (1) Hypercalciuria: Code(s): R82.994 - Hypercalciuria Category: Medical (2) Kidney stone: Code(s): N20.0 - Calculus of kidney Category: Medical Orders: Orders US renal BI 10 Months N20.0 - Calculus of kidney AMB Urinalysis Automated Today Z13.9 - Encounter for screening, unspecified Referrals Nephrology Referral R82.994 - Hypercalciuria Coding Diagnoses Hypercalciuria R82.994 Kidney stone N20.0
== END 2024-12-29 09:13 | disposition home or self-care (01) ==
LOC: HO.HUSH 08:21
PROVIDERS: PCP Internal Medicine; Visit Provider Urology
DX: Z13.9 Encounter for screening, unspecified (principal)

== ENCOUNTER → 2024-12-29 08:20 | Outpatient (BNVA) | payer BC, MEDICAID, SELFPAY | PROVIDERS: PCP Internal Medicine; Visit Provider Urology | DX: R82.994 Hypercalciuria (principal); N20.0 Calculus of kidney | CPT/HCPCS: 81003 ==

== ENCOUNTER 2025-03-20 11:34 | Outpatient (REF) | payer BC, MEDICAID, SELFPAY ==
[2025-03-20 13:53] LABS: MANUAL DIFF FLAG NO
[2025-03-20 13:57] LABS: Hematocrit 42.6 % (37.0-47.0); Hemoglobin 14.0 g/dl (12.0-16.0); Imm Gran Abs Auto 0.02 X10*3/uL (0.00-0.03); Imm Gran Pct Auto 0.4 % (0.0-0.4); Lymphocytes Absolute Auto 1.9 X10*3/uL (1.2-4.9); Mean Corpuscular HGB Conc 32.9 g/dl (31.0-35.0); Mean Corpuscular Hemoglobin 28.7 pg (27.0-33.0); Mean Corpuscular Volume 87.5 fL (80.0-98.0); NRBC Abs Auto 0.000 X10*3/uL (0.0-0.012); NRBC Pct Auto 0.0 /100WBC (0.0-0.2); Platelet Count 238 X10*3/uL (160-400); Red Blood Count 4.87 X10*6/uL (4.20-5.50); White Blood Count 5.4 X10*3/uL (4.8-10.8)
[2025-03-20 14:18] LABS: Hemoglobin A1C 147.4298 umol/L; Total Hemoglobin (HGBA1C) 3699.1080 umol/L
[2025-03-20 14:53] LABS: Alanine Aminotransferase 38 U/L (0-31); Albumin Level 4.6 g/dL (3.5-5.0); Alkaline Phosphatase 93 U/L (39-117); Anion Gap 11 (12-20); Aspartate Amino Transferase 24 U/L (5-31); Blood Urea Nitrogen 12 mg/dL (9-16); Calcium 8.7 mg/dL (8.4-10.2); Carbon Dioxide 23 mmol/L (22-29); Chloride 108 mmol/L (96-108); Cholesterol 217 mg/dL (<200); Estimated Glomerular Filt Rate > 60; HDL Cholesterol 38 mg/dL (>40); Potassium 3.8 mmol/L (3.3-5.1); Sodium 138 mmol/L (135-145); Total Protein 7.5 g/dL (6.5-8.0); Triglycerides 387 mg/dL (<150)
== END 2025-03-20 11:35 | disposition home or self-care (01) ==
LOC: HO.HMGCLDS 11:34
PROVIDERS: PCP Internal Medicine; Visit Provider Internal Medicine
DX: R73.03 Prediabetes (principal); I10 Essential (primary) hypertension; E78.9 Disorder of lipoprotein metabolism, unspecified; N20.0 Calculus of kidney
CPT/HCPCS: 36415; 80053; 80061; 83036; 85025

== ENCOUNTER 2025-05-18 08:42 | Outpatient (AMB) | payer BC, MEDICAID, SELFPAY ==
[2025-05-18 08:51] VITALS: BP 122/72; PULSE 83; O2SAT 98; BMI 22.5
--- NOTE | 2025-05-18 08:51 | A.OFFPC_ITS ---
Vital Signs 05/18/25 08:51 Height 5 ft 2 in Weight 123 lb BMI 22.5 BP 122/72 Blood Pressure Location Lt brachial Position Sitting Pulse 83 Pulse Source Pulse Oximeter Pulse Oximetry (%) 98 Oxygen Delivery Method Room Air Intake Visit Reasons: PE Allergies No Known Allergies Allergy (Verified 05/18/25 08:51) Medication List - Last Reconciled 05/18/25 by Ayo Negrete MD losartan 25 mg PO DAILY 90 days pravastatin 40 mg PO BEDTIME 90 days Tobacco use date assessed: 11/10/24 Dental Screening Dental Screen Date: 11/10/24 HPI PE HPI Details History of Present Illness The patient is a 44-year-old female presenting for a routine examination and health maintenance. Essential Hypertension: - The patient is currently taking losart an with no reported side effects. - Blood pressure was reported as good du ring this visit. Hyperlipidemia: - The patient is currently taking pravas tatin with no reported side effects. Atypical Ductal Hyperplasia of the Left Breast: - The patient underwent a lumpectomy in the left breast for atypical ductal hyperplasia. - The surgery was performed due to the l esion getting larger, though it was noncancerous. - No adjuvant radiation or chemotherapy was administered. History of Kidney Stones: - The patient reported having experience d kidney stones earlier in the year, which required emergency care. - Recent labs indicate normal kidney fun ction and no current stones. Medical History: - Essential Hypertension - Hyperlipidemia - Atypical Ductal Hyperplasia of the Lef t Breast Surgical History: - Lumpectomy of Left Breast for Atypical Ductal Hyperplasia Social History: - Recently returned from vacation prior to father?s passing. Family History: - Father due to Lung Cancer Health Maintenance - Mammogram rescheduled for upcoming edis ointment. - Awaiting ENTEROSTOMAL NURSE appointment due to cli juliette transition. - Screening colonoscopy to be arranged a s patient is now 44. - Previous labs in March indicated normal CBC, electrolytes, kidney function, liver enzymes, and cholesterol. Patient Instructions - Continue current medications as prescr ibed. - Repeat lab tests in August. - Arrange appointment for colonoscopy. - Obtain flu vaccine from pharmacy once available. - Attend rescheduled mammogram appointme nt. - Follow-up ENTEROSTOMAL NURSE appointment once sche duled. Review of Systems - General: No fever no chills - Neurological: No headaches no dizzin ess - Ear nose throat: No sore throat no hearing difficulty no ear pain - Cardiovascular: No syncope, no chest pain, no palpitations - Gastrointestinal: No nausea vomiting or diarrhea - Endocrine: No polyuria polydipsia no heat intolerance - Genitourinary: No dysuria - Skin: No new complaints Physical Exam General: Cooperative, healthy appearing, comfortable, no acute distress Orientation: Patient oriented x3 Limitations: none Head: Normal to inspection Ears: Within normal limit visually Nose: Normal external nose present Face and sinus: Normal facial exam Eyes: Appearance normal, extraocular movement intact pupils reactive Neck: Normal visual inspection and supple Respiratory: Normal respiratory effort and able to speak in complete sentences. Clear to auscultation, no stridor Cardiovascular: S1 and S2 RRR GI: Normal to inspection. Soft to palpation and nontender Skin: Turgor normal, no acute findings Neuro: Patient oriented x3, motor sensory intact, balance intact, tandem pass Extremities: Normal to inspection, full range of motion [facility] Medical History History of uterine fibroid Lipid disorder Hypertension, essential Surgical History S/P laparoscopic appendectomy Previous section Family History Father No problems noted. Mother No problems noted. Brother No problems noted. Sister No problems noted. Daughter No problems noted. 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 Patient Tobacco Use Status: Never used Tobacco e-Cigarette/Vaping Use: Never Used Second Hand Smoke Exposure: No service: No Current occupational status: employed Cognitive needs: No Hearing needs: No Vision needs: No Questionnaire Thrive Questionnaire Date Thrive assessed: 11/10/24 I am a: Patient What is your living situation today?: I have a steady place to live Within the past 12 months, did the food you bought not last and you didn't have the money to get more?: Never true Within the past 12 months, did you worry whether your food would run out before you got money to buy more?: Never true Do you have trouble paying for medicines?: No Do you have trouble getting transportation to medical appointments?: No Do you have trouble paying your heating and electricity bill?: No Do you have trouble taking care of your child, family member or friend?: No Do you have trouble with day-to-day activities such as bathing, preparing meals, shopping, managing finances, etc.?: No Are you currently unemployed and looking for a job?: No Are you interested in more education?: No Please select the resources that you would like help with: None Currently or been in a relationship where the following occur: No concerns reported THRIVE Score: 0 RAMONA-7 AMB Questionnaire RAMONA-7 Date RAMONA - 7 assessed: 11/10/24 Source: Developed by Drs. Isidro Henning, Angela Cox, Frank Reddy and colleagues, with an educational massimo from [employer]. Physical exam (Primary Care) Vital Signs: Last Vital Signs Pulse 83 05/18/25 08:51 BP 122/72 05/18/25 08:51 Pulse Ox 98 05/18/25 08:51 Oxygen Delivery Method Room Air 05/18/25 08:51 BMI result Body Mass Index 22.5 Tobacco/Smoking Status: Tobacco use Status Tobacco use date assessed 11/10/24 05/18/25 08:51 Patient Tobacco Use Status Never used Tobacco 05/18/25 08:51 e-Cigarette/Vaping Use Never Used 05/18/25 08:51 Thrive Assessment: Date of Thrive Assessment Date Thrive assessed 11/10/24 05/18/25 08:51 Currently or been in a relationship where the following occur: No concerns reported Coding Level of Care Code Est Pt Level 3 (30418) Est Pt Prev Care 40-64y(57229) Diagnoses Encounter for general adult medical examination with abnormal findings Z00.01 Hypertension, essential I10 Lipid disorder E78.9 Assessment & Plan Assessment & Plan (1) Encounter for general adult medical examination with abnormal findings: Code(s): Z00.01 - Encounter for general adult medical examination with abnormal findings Category: Medical (2) Hypertension, essential: Code(s): I10 - Essential (primary) hypertension Category: Medical (3) Lipid disorder: Code(s): E78.9 - Disorder of lipoprotein metabolism, unspecified Category: Medical Plan History of Present Illness The patient is a 44-year-old female presenting for a routine examination and health maintenance. Essential Hypertension: - The patient is currently taking losartan with no reported side effects. - Blood pressure was reported as good during this visit. Hyperlipidemia: - The patient is currently taking pravastatin with no reported side effects. Atypical Ductal Hyperplasia of the Left Breast: - The patient underwent a lumpectomy in the left breast for atypical ductal hyperplasia. - The surgery was performed due to the lesion getting larger, though it was noncancerous. - No adjuvant radiation or chemotherapy was administered. History of Kidney Stones: - The patient reported having experienced kidney stones earlier in the year, which required emergency care. - Recent labs indicate normal kidney function and no current stones. Medical History: - Essential Hypertension - Hyperlipidemia - Atypical Ductal Hyperplasia of the Left Breast Surgical History: - Lumpectomy of Left Breast for Atypical Ductal Hyperplasia Social History: - Recently returned from vacation prior to father?s passing. Family History: - Father due to Lung Cancer Health Maintenance - Mammogram rescheduled for upcoming appointment. - Awaiting ENTEROSTOMAL NURSE appointment due to clinic transition. - Screening colonoscopy to be arranged as patient is now 44. - Previous labs in March indicated normal CBC, electrolytes, kidney function, liver enzymes, and cholesterol. Patient Instructions - Continue current medications as prescribed. - Repeat lab tests in August. - Arrange appointment for colonoscopy. - Obtain flu vaccine from pharmacy once available. - Attend rescheduled mammogram appointment. - Follow-up ENTEROSTOMAL NURSE appointment once scheduled. Orders: Orders Complete Blood Count Auto Diff Today E78.9 - Disorder of lipoprotein metabolism, unspecified, I10 - Essential (primary) hypertension, Z00.01 - Encounter for general adult medical examination with abnormal findings Lipid Panel Today E78.9 - Disorder of lipoprotein metabolism, unspecified, I10 - Essential (primary) hypertension, Z00.01 - Encounter for general adult medical examination with abnormal findings Comprehensive [place]. Panel Fast Today E78.9 - Disorder of lipoprotein metabolism, unspecified, I10 - Essential (primary) hypertension, Z00.01 - Encounter for general adult medical examination with abnormal findings Referrals Open Access Screening Colonoscopy Referral Z12.11 - Encounter for screening for malignant neoplasm of colon
== END 2025-05-18 09:16 | disposition home or self-care (01) ==
LOC: HO.HMCC 08:43
PROVIDERS: PCP Internal Medicine; Visit Provider Internal Medicine
DX: Z00.00 Encounter for general adult medical examination without abnormal findings (principal); I10 Essential (primary) hypertension; E78.9 Disorder of lipoprotein metabolism, unspecified

== ENCOUNTER 2025-09-11 11:14 | Outpatient (AMB) | payer BC, MEDICAID, SELFPAY ==
[2025-09-11 11:16] VITALS: BP 140/86; PULSE 99; RESP 18; O2SAT 100; BMI 22.9
--- NOTE | 2025-09-11 11:16 | MHC.PC.OV ---
Vital Signs 09/11/25 11:16 Height 5 ft 2 in Weight 125 lb BMI 22.9 BP 140/86 H Blood Pressure Location Rt brachial Position Sitting Respiration 18 Pulse 99 Pulse Source Pulse Oximeter Pulse Oximetry (%) 100 Oxygen Delivery Method Room Air Intake Visit Reasons: High Bp Allergies No Known Allergies Allergy (Verified 09/11/25 11:23) Medication List - Last Reconciled 09/11/25 by Ayo Negrete MD losartan 25 mg PO DAILY 90 days pravastatin 40 mg PO BEDTIME 90 days Tobacco use date assessed: 09/11/25 Dental Screening Dental Screen Date: 09/11/25 Did you have a dental visit in the last 12 months?: Yes Did you have a dental problem in the last 6 months where you did not have access to dental care?: No Was dental information given to patient?: Patient has dentist HPI HPI Comments History of Present Illness Details History of Present Illness The patient is a 45-year-old female presenting for evaluation of elevated blood pressure and insomnia. Hypertension: - The patient's blood pressure was 140/86 mmHg in the office. - At home, her blood pressure readings were as high as 148, which increased to 155 when she panicked. - She currently takes losartan 25 mg for her blood pressure. Insomnia: - The patient reports she has recently developed insomnia, characterized by difficulty sleeping. - She wakes up around 2 a.m. and is unable to fall back asleep. - The patient has tried drinking milk to help with sleep. Anxiety: - The patient has a history of anxiety and is not taking medication for it. - She reports that her anxiety and high blood pressure readings exacerbate each other. - The patient believes the recent passing of her father may be a contributing factor to her anxiety. Menopausal symptoms: - The patient questions if her insomnia and other symptoms may be related to menopause. - It was discussed that premenopausal hormonal changes can worsen existing anxiety. Medical History: - Hypertension - Hyperlipidemia - Anxiety Medications: - Losartan 25 mg for hypertension - Pravastatin 40 mg for hyperlipidemia Social History: - Life stressor: Reports her father recently . - Sleep habits: Reports insomnia and difficulty maintaining sleep. - Screen time: Admits to sometimes using her phone before attempting to sleep. Diagnostic Results: - Vitals: Blood pressure 140/86 mmHg. - Home Blood Pressure Monitoring: Readings last night were as high as 148, increasing to 155 with panic. [facility] Medical History History of uterine fibroid Lipid disorder Hypertension, essential Surgical History S/P laparoscopic appendectomy Previous section Family History Father No problems noted. Mother No problems noted. Brother No problems noted. Sister No problems noted. Daughter No problems noted. Social History Household Members: Family Housing: House Do you presently have visiting nurse or other home services: No Alcohol intake: never Comment: ABD INDU FEELS BETTER. Patient Tobacco Use Status: Never used Tobacco e-Cigarette/Vaping Use: Never Used Second Hand Smoke Exposure: No service: No Current occupational status: employed Cognitive needs: No Hearing needs: No Vision needs: No Questionnaire Thrive Questionnaire Date Thrive assessed: 11/10/24 I am a: Patient What is your living situation today?: I have a steady place to live Within the past 12 months, did the food you bought not last and you didn't have the money to get more?: Never true Within the past 12 months, did you worry whether your food would run out before you got money to buy more?: Never true Do you have trouble paying for medicines?: No Do you have trouble getting transportation to medical appointments?: No Do you have trouble paying your heating and electricity bill?: No Do you have trouble taking care of your child, family member or friend?: No Do you have trouble with day-to-day activities such as bathing, preparing meals, shopping, managing finances, etc.?: No Are you currently unemployed and looking for a job?: No Are you interested in more education?: No Currently or been in a relationship where the following occur: No concerns reported THRIVE Score: 0 AUDIT C Alcohol Use Questionnaire (AUDIT-C) 1. How often do you have a drink containing alcohol?: Never 3. How often do you have six or more drinks on one occasion?: Never Total Score: 0 Score Reviewed/Action Taken: Yes RAMONA-7 AMB Questionnaire RAMONA-7 Date RAMONA - 7 assessed: 11/10/24 Source: Developed by Drs. Isidro Henning, Angela Cox, Frank Reddy and colleagues, with an educational massimo from [employer]. Review of Systems Narrative Review of Systems - General: No fever no chills - Neurological: No headaches no dizziness - Ear nose throat: No sore throat no hearing difficulty no ear pain - Cardiovascular: No syncope, no chest pain, no palpitations - Gastrointestinal: No nausea vomiting or diarrhea - Endocrine: No polyuria polydipsia no heat intolerance - Genitourinary: No dysuria , no blood in urine Physical exam (Primary Care) Vital Signs: Last Vital Signs Pulse 99 09/11/25 11:16 Resp 18 09/11/25 11:16 BP 140/86 H 09/11/25 11:16 Pulse Ox 100 09/11/25 11:16 Oxygen Delivery Method Room Air 09/11/25 11:16 BMI result Body Mass Index 22.9 Tobacco/Smoking Status: Tobacco use Status Tobacco use date assessed 09/11/25 09/11/25 11:17 Patient Tobacco Use Status Never used Tobacco 09/11/25 11:17 e-Cigarette/Vaping Use Never Used 09/11/25 11:17 Thrive Assessment: Date of Thrive Assessment Date Thrive assessed 11/10/24 09/11/25 11:17 Currently or been in a relationship where the following occur: No concerns reported Narrative Physical Exam - General: No acute distress - HEENT: No acute findings - Neck: Supple - Respiratory system: Able to talk in full sentences, no audible wheeze - Cardiovascular: S1-S2 regular in rate and rhythm - Gastrointestinal: No pain - Extremities: No new findings - 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 motor 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 - Skin: Normal turgor Coding Level of Care Code Est Pt Level 4 (96116) Diagnoses Uncontrolled hypertension I10 Difficulty sleeping G47.9 Anxiety, generalized F41.1 Premenopausal patient N95.9 Assessment & Plan Assessment & Plan (1) Uncontrolled hypertension: Code(s): I10 - Essential (primary) hypertension Category: Medical (2) Difficulty sleeping: Code(s): G47.9 - Sleep disorder, unspecified Category: Medical (3) Anxiety, generalized: Code(s): F41.1 - Generalized anxiety disorder Category: Medical (4) Premenopausal patient: Code(s): N95.9 - Unspecified menopausal and perimenopausal disorder Category: Medical Plan Problem List - Essential Hypertension - Insomnia - Anxiety - Menopausal symptoms Plan - Start clonidine at night to address high blood pressure, anxiety, and insomnia. - Continue current medications, including losartan 25 mg and pravastatin 40 mg. - Educated the patient on sleep hygiene, including avoiding phone use before bed, reading a book, and calming down before sleeping. - The patient will continue to monitor her blood pressure at home. - Discussed referral to a therapist to address her anxiety. - The patient was advised to consider therapy and will provide a decision at her next appointment on the . - Follow-up is scheduled for the . Medications: New clonidine HCl 0.1 mg PO BEDTIME 30 tabs 0RF
== END 2025-09-11 11:42 | disposition home or self-care (01) ==
LOC: HO.HMCC 11:15
PROVIDERS: PCP Internal Medicine; Visit Provider Internal Medicine
DX: I10 Essential (primary) hypertension (principal); G47.9 Sleep disorder, unspecified; F41.1 Generalized anxiety disorder; N95.9 Unspecified menopausal and perimenopausal disorder